=== PATIENT | male | born 1960 | race Caucasian/White ===

== ENCOUNTER 2019-10-29 15:28 | Inpatient (IN) | payer OTHER ==
[~2019-10-29] VITALS: Ht 188 cm; Wt 78.0 kg
[2019-10-29 16:54] LABS: BASOPHILS ABSOLUTE AUTO 0.09 K/mm3 (0.00-0.23); BASOPHILS PERCENT AUTO 0 % (0-2); EOSINOPHILS ABSOLUTE AUTO 0.04 K/mm3 (0.00-0.68); EOSINOPHILS PERCENT AUTO 0 % (0-6); Hematocrit 50.7 % (37.0-53.0); Hemoglobin 16.8 g/dL (13.5-17.5); IMMATURE GRAN ABSOLUTE AUTO 0.22 K/mm3 (0.00-0.10); IMMATURE GRAN PERCENT AUTO 1 % (0-1); LYMPHOCYTES ABSOLUTE AUTO 1.15 K/mm3 (0.84-5.20); LYMPHOCYTES PERCENT AUTO 4 % (21-46); MONOCYTES ABSOLUTE AUTO 2.73 K/mm3 (0.16-1.47); MONOCYTES PERCENT AUTO 10 % (4-13); Mean Corpuscular HGB 29.7 pg (26.0-34.0); Mean Corpuscular HGB Conc 33.1 g/dL (31.5-36.5); Mean Corpuscular Volume 90 fL (80-100); Mean Platelet Volume 10.3 fL (9.1-12.4); NEUTROPHILS ABSOLUTE AUTO 22.42 K/mm3 (1.96-9.15); NEUTROPHILS PERCENT AUTO 84 % (41-73); Platelet Count 439 K/mm3 (150-400); RDW Coefficient Variation 13.8 % (11.7-14.2); RDW Standard Deviation 45.5 fL (35.1-46.3); Red Blood Cell Count 5.66 M/mm3 (4.30-5.90); White Blood Cell Count 26.65 K/mm3 (4.00-11.30)
[2019-10-29 17:16] LABS: Ethanol (Alcohol), Blood, Med <3 mg/dL; Salicylate 3.5 mg/dL (2.8-20.0)
[2019-10-29 18:06] LABS: Alanine Aminotransfer (ALT/SGP 19 U/L (12-78); Albumin, Blood 2.8 g/dL (3.4-5.0); Albumin/Globulin Ratio 0.5 (0.8-1.8); Alk Phos 99 U/L (50-136); Anion Gap 8 mmol/L (6-16); Aspartate Aminotrans (AST/SGOT 12 U/L (12-37); Bilirubin, Total 1.1 mg/dL (0.1-1.0); Blood Urea Nitrogen 25 mg/dL (8-24); Bun/Creatinine Ratio 18.2 (12.0-20.0); CO2, Blood 22 mmol/L (21-32); Calcium, Blood 9.3 mg/dL (8.5-10.1); Chloride, Blood 107 mmol/L (98-108); Creatinine, Blood 1.37 mg/dL (0.60-1.20); Globulin, Blood 5.2 g/dL (2.2-4.0); Glomerular Filtration Rate 57 (60-); Glucose, Blood 139 mg/dL (70-99); Potassium, Blood 3.5 mmol/L (3.5-5.5); Sodium, Blood 137 mmol/L (136-145)
[2019-10-29 18:07] LABS: Acetaminophen, Random <2.0 ug/mL (10.0-30.0)
[2019-10-29 21:32] LABS: BASOPHILS ABSOLUTE AUTO 0.09 K/mm3 (0.00-0.23); BASOPHILS PERCENT AUTO 0 % (0-2); EOSINOPHILS ABSOLUTE AUTO 0.02 K/mm3 (0.00-0.68); EOSINOPHILS PERCENT AUTO 0 % (0-6); Hematocrit 48.5 % (37.0-53.0); IMMATURE GRAN ABSOLUTE AUTO 0.22 K/mm3 (0.00-0.10); IMMATURE GRAN PERCENT AUTO 1 % (0-1); LYMPHOCYTES ABSOLUTE AUTO 1.25 K/mm3 (0.84-5.20); LYMPHOCYTES PERCENT AUTO 5 % (21-46); MONOCYTES PERCENT AUTO 10 % (4-13); Mean Corpuscular HGB 29.6 pg (26.0-34.0); Mean Corpuscular Volume 90 fL (80-100); Mean Platelet Volume 10.3 fL (9.1-12.4); NEUTROPHILS ABSOLUTE AUTO 20.87 K/mm3 (1.96-9.15); NEUTROPHILS PERCENT AUTO 84 % (41-73); Platelet Count 418 K/mm3 (150-400); RDW Coefficient Variation 13.9 % (11.7-14.2); RDW Standard Deviation 45.8 fL (35.1-46.3); White Blood Cell Count 24.95 K/mm3 (4.00-11.30)
[2019-10-29 22:28] LABS: Magnesium, Blood 2.1 mg/dL (1.6-2.4); Salicylate 2.6 mg/dL (2.8-20.0)
[2019-10-30 00:04] LABS: Source, Urine Voided
[2019-10-30 00:12] LABS: Blood, Urine Neg (Neg); Glucose Qualitative, Urine Neg (Neg); Ketones, Urine 1+ (Neg); Leukocyte Esterase, Urine Neg (Neg); Nitrite, Urine Neg (Neg); Protein, Urine 2+ (Neg); Specific Gravity, Urine 1.015 (1.003-1.022); Urobilinogen, Urine 2+ (Normal)
[2019-10-30 00:17] LABS: Appearance, Urine Clear (Clear); Bilirubin, Urine 1+ (Neg); Color, Urine Amber (P-Yellow)
[2019-10-30 00:20] LABS: Amorphous Light (0-Heavy); Bacteria Not Seen /hpf; Mucus Light (0-Heavy); Red Blood Cells, Urine Not Seen /hpf (0-2); Squamous Epithelial Cells Not Seen /hpf (Few); White Blood Cells, Urine Rare /hpf (0-5)
[2019-10-30 00:21] LABS: U Amphetamine Screen Not Detected; U Barbituate Screen Not Detected; U Benzodiazapine Screen DETECTED; U Buprenorphine Screen Not Detected; U Cannabinoids Screen DETECTED; U Cocaine Screen Not Detected; U Methadone Screen Not Detected; U Methamphetamine Screen Not Detected; U Opiates Screen Not Detected; U Oxycodone Screen Not Detected; U Phencyclidine Screen Not Detected; U Propoxyphene Screen Not Detected
--- NOTE | 2019-10-30 06:54 | NUR ---
ADMIT/SHIFT SUMMERY PATIENT ALERT AND ORIENTED BUT HAS BEEN VERY FORGETFUL THROUGHOUT THE NIGHT. PATIENT ADMITED FROM THE ER AND TRANSFERED SELF FROM THE GURNEY TO THE BED BUT WAS VERY SHAKEY AND IMPULSIVE DOING SO. PATIENT HAS BEEN VERY FIDGTY AND IMPULSIVE LAST NIGHT. PATIENT SHAKEY ON AMBULATION. IV FLUIDS RUNNING PER ORDERS. BED ALARM ON FOR SAFETY, PATIENT HAS SET THE ALARM OFF SEVERAL TIMES TONIGHT. CENTRAL MONITORING CAMERA ON AND VERIFIED ABILITY FOR CAMER TO SEE HIM. PATIENT APPEARED TO SLEEP WELL FOR APPROX 2-3 HOURS LAST NIGHT. WILL CONTINUE TO MONITOR PATIENT AND REPORT TO ONCOMING RN.
[2019-10-30 08:25] LABS: BASOPHILS ABSOLUTE AUTO 0.11 K/mm3 (0.00-0.23); BASOPHILS PERCENT AUTO 0 % (0-2); EOSINOPHILS ABSOLUTE AUTO 0.05 K/mm3 (0.00-0.68); EOSINOPHILS PERCENT AUTO 0 % (0-6); Hematocrit 44.1 % (37.0-53.0); Hemoglobin 14.9 g/dL (13.5-17.5); IMMATURE GRAN PERCENT AUTO 2 % (0-1); LYMPHOCYTES ABSOLUTE AUTO 1.62 K/mm3 (0.84-5.20); LYMPHOCYTES PERCENT AUTO 6 % (21-46); MONOCYTES ABSOLUTE AUTO 3.13 K/mm3 (0.16-1.47); MONOCYTES PERCENT AUTO 12 % (4-13); Mean Corpuscular HGB 30.3 pg (26.0-34.0); Mean Corpuscular HGB Conc 33.8 g/dL (31.5-36.5); Mean Corpuscular Volume 90 fL (80-100); NEUTROPHILS ABSOLUTE AUTO 20.31 K/mm3 (1.96-9.15); NEUTROPHILS PERCENT AUTO 79 % (41-73); Platelet Count 346 K/mm3 (150-400); RDW Coefficient Variation 13.9 % (11.7-14.2); RDW Standard Deviation 45.7 fL (35.1-46.3); Red Blood Cell Count 4.91 M/mm3 (4.30-5.90); White Blood Cell Count 25.82 K/mm3 (4.00-11.30)
[2019-10-30 08:34] LABS: Anion Gap 11 mmol/L (6-16); Blood Urea Nitrogen 19 mg/dL (8-24); Bun/Creatinine Ratio 14.7 (12.0-20.0); CO2, Blood 19 mmol/L (21-32); Calcium, Blood 8.3 mg/dL (8.5-10.1); Chloride, Blood 110 mmol/L (98-108); Creatinine, Blood 1.29 mg/dL (0.60-1.20); Glomerular Filtration Rate >60 (60-); Glucose, Blood 83 mg/dL (70-99); Potassium, Blood 3.8 mmol/L (3.5-5.5); Sodium, Blood 140 mmol/L (136-145)
--- NOTE | 2019-10-30 18:23 | NUR ---
SHIFT SUMMARY NO ACUTE CHANGES NOTED THROUGH THE DAY. PT HAS BEEN RESTING IN BED WATCHING TV. HIS AFFECT REMAINS FLAT, FORGETFUL, ORIENTED X2. PT HAS BEEN COOPERATIVE WITH CARE & IS ABLE TO VOICE HIS NEEDS. VSS, RESP UNLABORED. IV ABX INFUSED PER EMAR. PT DENIES NAUSEA/ABD PAIN, NO STOOLS NOTED TODAY. HE HAS REFUSED CLEAR LIQUID OPTIONS FOR DINNER BUT HE IS TOLERATING SMALL SIPS OF WATER. PT'S SISTER HAS BEEN UPDATED ABOUT PT'S STATUS. BED ALARM IS ON FOR SAFETY, CALL LIGHT REMAINS IN REACH, WCTM
[2019-10-31 04:19] LABS: BASOPHILS ABSOLUTE AUTO 0.08 K/mm3 (0.00-0.23); BASOPHILS PERCENT AUTO 1 % (0-2); EOSINOPHILS ABSOLUTE AUTO 0.09 K/mm3 (0.00-0.68); EOSINOPHILS PERCENT AUTO 1 % (0-6); Hematocrit 43.1 % (37.0-53.0); Hemoglobin 14.1 g/dL (13.5-17.5); IMMATURE GRAN ABSOLUTE AUTO 0.23 K/mm3 (0.00-0.10); IMMATURE GRAN PERCENT AUTO 1 % (0-1); LYMPHOCYTES ABSOLUTE AUTO 2.27 K/mm3 (0.84-5.20); LYMPHOCYTES PERCENT AUTO 13 % (21-46); MONOCYTES PERCENT AUTO 11 % (4-13); Mean Corpuscular HGB 30.2 pg (26.0-34.0); Mean Corpuscular HGB Conc 32.7 g/dL (31.5-36.5); Mean Corpuscular Volume 92 fL (80-100); Mean Platelet Volume 10.2 fL (9.1-12.4); NEUTROPHILS PERCENT AUTO 73 % (41-73); Platelet Count 414 K/mm3 (150-400); RDW Coefficient Variation 14.1 % (11.7-14.2); RDW Standard Deviation 47.8 fL (35.1-46.3); Red Blood Cell Count 4.67 M/mm3 (4.30-5.90); White Blood Cell Count 17.17 K/mm3 (4.00-11.30)
[2019-10-31 04:42] LABS: Alanine Aminotransfer (ALT/SGP 13 U/L (12-78); Albumin, Blood 2.3 g/dL (3.4-5.0); Albumin/Globulin Ratio 0.5 (0.8-1.8); Alk Phos 81 U/L (50-136); Anion Gap 8 mmol/L (6-16); Aspartate Aminotrans (AST/SGOT 10 U/L (12-37); Bilirubin, Total 0.9 mg/dL (0.1-1.0); Blood Urea Nitrogen 16 mg/dL (8-24); Bun/Creatinine Ratio 12.4 (12.0-20.0); CO2, Blood 23 mmol/L (21-32); Calcium, Blood 8.2 mg/dL (8.5-10.1); Chloride, Blood 110 mmol/L (98-108); Creatinine, Blood 1.29 mg/dL (0.60-1.20); Globulin, Blood 4.2 g/dL (2.2-4.0); Glomerular Filtration Rate >60 (60-); Glucose, Blood 86 mg/dL (70-99); Potassium, Blood 3.6 mmol/L (3.5-5.5); Sodium, Blood 141 mmol/L (136-145); Total Protein, Blood 6.5 g/dL (6.4-8.2)
--- NOTE | 2019-10-31 05:30 | NUR ---
SHIFT SUMMARY PATIENT HAS HAD FLAT AFFECT AND HAS BEEN SLOW TO RESPOND WHEN TALKING WITH STAFF. IT IS DIFFICULT TO DETERMINE HOW MUCH PATIENT UNDERSTANDS WHEN EDUCATION BEING PROVIDED TO PATIENT DUE TO LACK OF RESPONSE AND INTERACTION FROM PATIENT. PATIENT APPEARED TO SLEEP WELL THROUGHOUT THE NIGHT. CAMERA ON IN ROOM AND BED ALARM ON FOR SAFETY. PATIENT MOVING SELF ABOUT IN BED. VITAL SIGNS CHARTED. WILL CONTINUE TO MONITOR PATIENT AND REPORT TO ONCOMING RN.
--- NOTE | 2019-10-31 17:54 | NUR ---
SHIFT SUMMARY NO ACUTE CHANGES NOTED THROUGH THE DAY. PT HAS BEEN RESTING QUIETLY IN BED. VSS, RESP UNLABORED, HE HAS BEEN TOLERATING CLEAR LIQUID DIET, DENIES PAIN/NAUSEA. DIET ADVANCED TO FULL LIQUID THIS EVENING. PT HAS REFUSED PERSONAL CARE TODAY AND WILL NOT WALK IN THE HALLS. EDUCATION PROVIDED, HE WAS NOT RECEPTIVE. BED ALRM REMAINS IN PLACE FOR SAFETY. IV FLUIDS & ABX INFUSED PER EMAR. CALL LIGHT IN REACH [facility]
--- NOTE | 2019-11-01 06:12 | NUR ---
SHIFT SUMMARY PATIENT VERY WITHDRAWN WITH A FLAT AFFECT LAST NIGHT. PATIENT DID NOT ENTERACT WITH STAFF VERY MUCH. PATIENT WOULD NOD/SHAKE HEAD OCCATIONALLY BUT PATIENT DID NOT VERBALLY COMMUNICATE WITH STAFF AT ALL LAST NIGHT. PATIENT HAS APPEARED TO SLEEP WELL THROUGHOUT THE NIGHT. BED ALARM ON FOR SAFETY. IV FLUIDS AND ABX GIVEN PER ORDERS. VITAL SIGNS CHARTED. PATIENT CURRENTLY APPEARS TO BE SLEEPING. WILL CONTINUE TO MONITOR PATIENT AND REPORT TO ONCOMING RN.
[2019-11-01 09:08] LABS: BASOPHILS ABSOLUTE AUTO 0.11 K/mm3 (0.00-0.23); BASOPHILS PERCENT AUTO 1 % (0-2); EOSINOPHILS ABSOLUTE AUTO 0.07 K/mm3 (0.00-0.68); EOSINOPHILS PERCENT AUTO 0 % (0-6); Hematocrit 44.6 % (37.0-53.0); Hemoglobin 14.5 g/dL (13.5-17.5); IMMATURE GRAN ABSOLUTE AUTO 0.15 K/mm3 (0.00-0.10); IMMATURE GRAN PERCENT AUTO 1 % (0-1); LYMPHOCYTES ABSOLUTE AUTO 1.43 K/mm3 (0.84-5.20); LYMPHOCYTES PERCENT AUTO 8 % (21-46); MONOCYTES ABSOLUTE AUTO 1.43 K/mm3 (0.16-1.47); MONOCYTES PERCENT AUTO 8 % (4-13); Mean Corpuscular HGB 29.9 pg (26.0-34.0); Mean Corpuscular HGB Conc 32.5 g/dL (31.5-36.5); Mean Corpuscular Volume 92 fL (80-100); Mean Platelet Volume 9.7 fL (9.1-12.4); NEUTROPHILS ABSOLUTE AUTO 13.88 K/mm3 (1.96-9.15); NEUTROPHILS PERCENT AUTO 81 % (41-73); Platelet Count 470 K/mm3 (150-400); RDW Coefficient Variation 13.9 % (11.7-14.2); RDW Standard Deviation 47.2 fL (35.1-46.3); Red Blood Cell Count 4.85 M/mm3 (4.30-5.90); White Blood Cell Count 17.07 K/mm3 (4.00-11.30)
[2019-11-01 09:30] LABS: Magnesium, Blood 1.9 mg/dL (1.6-2.4)
[2019-11-01 09:31] LABS: Alanine Aminotransfer (ALT/SGP 11 U/L (12-78); Albumin, Blood 2.2 g/dL (3.4-5.0); Albumin/Globulin Ratio 0.5 (0.8-1.8); Alk Phos 79 U/L (50-136); Anion Gap 9 mmol/L (6-16); Aspartate Aminotrans (AST/SGOT 8 U/L (12-37); Bilirubin, Total 0.8 mg/dL (0.1-1.0); Blood Urea Nitrogen 14 mg/dL (8-24); Bun/Creatinine Ratio 11.8 (12.0-20.0); CO2, Blood 21 mmol/L (21-32); Calcium, Blood 8.4 mg/dL (8.5-10.1); Chloride, Blood 110 mmol/L (98-108); Creatinine, Blood 1.19 mg/dL (0.60-1.20); Globulin, Blood 4.6 g/dL (2.2-4.0); Glomerular Filtration Rate >60 (60-); Glucose, Blood 71 mg/dL (70-99); Potassium, Blood 3.9 mmol/L (3.5-5.5); Sodium, Blood 140 mmol/L (136-145); Total Protein, Blood 6.8 g/dL (6.4-8.2)
--- NOTE | 2019-11-01 17:56 | NUR ---
SUMMARY NO ACUTE CHANGES NOTED THROUGH THE DAY. PT HAS BEEN VERY QUIET AND NOT WANTING TO RESPOND TO QUESTIONS. HE HAS STARTED TO COMMUNICATE WITH ME MORE THIS AFTERNOON WITH YES OR NO ANSWERS. PT AGREED THAT HE IS NOT TOLERATING HIS DIET WELL TODAY AND IS HAVING SOME INCREASED PAIN, HE DENIES THE NEED FOR PAIN MEDICATION AT THIS TIME, DENIES PASSING FLATUS AND REFUSES TO AMBULATE. UFF IN TO ASSESS PT TODAY, PT DID NOT ENGAGE. PT WAS EDUCATED ABOUT HIS CONDITION AND THE REASON WHY HE IS IN THE HOSPITAL. HE WAS STRONGLY ENC TO COMMUNICATE WITH DOCTORS & NURSES, HE HAS AGREED AT THIS TIME. PT'S SISTER HAS STATED OVER THE PHONE THAT THE PT "HAS BEEN IN DENIAL ABOUT HIS MENTAL HEALTH ISSUES IN THE PAST" THE PT WAS REMINDED THAT HE IS HERE FOR AN INFECTION, NOT JUST "MENTAL HEALTH" HE APPEARED TO BE MORE WILLING TO COMMUNICATE AFTERWARDS. PT REMAINS ON ROOM AIR, ABX INFUSING PER EMAR, REFUSING PERSONAL CARE, BED ALARM ON FOR SAFETY, CALL LIGHT IN REACH, WCTM & REPORT TO NOC RN
--- NOTE | 2019-11-01 22:52 | NUR ---
REPORT GIVEN TO MEDICAL FLOOR NURSE. PT TRANSFERRING TO ROOM 347.
--- NOTE | 2019-11-01 23:34 | NUR ---
Pt activity Pt is only responding to staff when asked yes or no questions. That is only with very slight nods or shakes of his head. He is not willing to help with repositioning or anything else. He just keeps his body very limp.
--- NOTE | 2019-11-02 04:58 | NUR ---
SHIFT SUMMARY PT XFER'D FROM PCU THIS SHIFT, REPORT REC FROM ANGEL RN, PT XFER'D VIA BED/SLIDE @ 2300, PT NOT RESPONDING TO STAFF, WILL OCCASIONALLY SHAKE HEAD TO YES/NO QUESTIONS BUT MOSTLY TURNS HEAD AWAY WHEN STAFF SPEAKS TO HIM. AWOKE PT @ 0405 TO BEGIN ADMIN OF ORAL CONTRAST, PT HAS TURNS HEAD AWAY WHEN STRAW PLACED TO MOUTH EVEN THOUGH PT HAS BEEN ADUCATED ON PURPOSE/IMPORTANCE OF CONTRAST. PT BEDRESTING AT THIS TIME, CALL LIGHT IN REACH, ALARM ACTIVE, WILL CONT TO MONITOR UNTIL REPORT GIVEN TO DAY RN.
[2019-11-02 05:37] LABS: BASOPHILS ABSOLUTE AUTO 0.07 K/mm3 (0.00-0.23); BASOPHILS PERCENT AUTO 0 % (0-2); EOSINOPHILS ABSOLUTE AUTO 0.07 K/mm3 (0.00-0.68); EOSINOPHILS PERCENT AUTO 0 % (0-6); Hematocrit 44.2 % (37.0-53.0); Hemoglobin 14.4 g/dL (13.5-17.5); IMMATURE GRAN ABSOLUTE AUTO 0.21 K/mm3 (0.00-0.10); IMMATURE GRAN PERCENT AUTO 1 % (0-1); LYMPHOCYTES ABSOLUTE AUTO 1.58 K/mm3 (0.84-5.20); LYMPHOCYTES PERCENT AUTO 8 % (21-46); MONOCYTES ABSOLUTE AUTO 1.65 K/mm3 (0.16-1.47); MONOCYTES PERCENT AUTO 9 % (4-13); Mean Corpuscular HGB 29.6 pg (26.0-34.0); Mean Corpuscular HGB Conc 32.6 g/dL (31.5-36.5); Mean Corpuscular Volume 91 fL (80-100); Mean Platelet Volume 9.9 fL (9.1-12.4); NEUTROPHILS ABSOLUTE AUTO 15.46 K/mm3 (1.96-9.15); NEUTROPHILS PERCENT AUTO 81 % (41-73); Platelet Count 525 K/mm3 (150-400); RDW Coefficient Variation 13.7 % (11.7-14.2); RDW Standard Deviation 46.2 fL (35.1-46.3); Red Blood Cell Count 4.86 M/mm3 (4.30-5.90); White Blood Cell Count 19.04 K/mm3 (4.00-11.30)
[2019-11-02 06:04] LABS: Alanine Aminotransfer (ALT/SGP 11 U/L (12-78); Albumin, Blood 2.1 g/dL (3.4-5.0); Albumin/Globulin Ratio 0.5 (0.8-1.8); Alk Phos 82 U/L (50-136); Anion Gap 9 mmol/L (6-16); Aspartate Aminotrans (AST/SGOT 9 U/L (12-37); Bilirubin, Total 0.8 mg/dL (0.1-1.0); Blood Urea Nitrogen 12 mg/dL (8-24); Bun/Creatinine Ratio 10.3 (12.0-20.0); CO2, Blood 22 mmol/L (21-32); Calcium, Blood 8.5 mg/dL (8.5-10.1); Chloride, Blood 106 mmol/L (98-108); Creatinine, Blood 1.17 mg/dL (0.60-1.20); Globulin, Blood 4.5 g/dL (2.2-4.0); Glomerular Filtration Rate >60 (60-); Glucose, Blood 92 mg/dL (70-99); Potassium, Blood 3.6 mmol/L (3.5-5.5); Sodium, Blood 137 mmol/L (136-145); Total Protein, Blood 6.6 g/dL (6.4-8.2)
[2019-11-02 13:44] LABS: International Normalized Ratio 1.13
--- NOTE | 2019-11-02 17:01 | NUR ---
SHIFT SUMMARY PATIENT DECLINES TO ANSWER MOST QUESTIONS FROM STAFF AND WILL TURN HIS HEAD AWAY WHEN HE DOES NOT WANT TO PARTICIPATE. PATIENT DECLINES TO ATTEMPT GETTING OUT OF BED. PATIENT HAD CT OF ABDOMEN THIS MORNING REVEALING A LARE FLUID COLLECTION/ABCESS. DR. MANCIA RECOMMENDS DRAIN PLACEMENT. PATIENT HAS REFUSED. PATIENT ON [address] COTE CONSULTING. POSSIBLE ETHICS CONSULT. PATIENT HAS POOR PO INTAKE. TPN STARTED. CALL LIGHT IN REACH.
--- NOTE | 2019-11-03 04:44 | NUR ---
SHIFT SUMMARY PT CONTINUES TO BE FLAT AND WITHDRAWN. VERY LITTLE CONVERSATION WITH STAFF, NODS HEAD "YES" OR "NO" WHEN ASKED A QUESTION, AND WILL OCCASIONALLY GIVE A ONE WORDED ANSWER WHEN HE NEEDS SOMETHING, AND DOES NOT MAKE EYE CONTACT. PT ASKED FOR ICE CHIPS, AND ANSWERED "NO" WHEN I ASKED IF HE WANTED TO TAKE HIS HS MEDICATIONS, THAT WAS THE EXTENT OF ANY VERBAL COMMUNICATION WITH ME THIS SHIFT. PT HAS HAD HIS EYES CLOSED MOST OF THE TIME AND APPEARS TO BE SLEEPING. IV ABX CONTINUED ORDERED. VITALS STABLE. PPN INFUSING PER ORDERS. NO ACUTE CHANGES OVERNIGHT. BED IN LOWEST POSITION, CALL LIGHT WITHIN REACH.
[2019-11-03 05:37] LABS: BASOPHILS ABSOLUTE AUTO 0.12 K/mm3 (0.00-0.23); BASOPHILS PERCENT AUTO 1 % (0-2); EOSINOPHILS PERCENT AUTO 0 % (0-6); Hematocrit 44.5 % (37.0-53.0); IMMATURE GRAN ABSOLUTE AUTO 0.33 K/mm3 (0.00-0.10); IMMATURE GRAN PERCENT AUTO 1 % (0-1); LYMPHOCYTES ABSOLUTE AUTO 1.45 K/mm3 (0.84-5.20); LYMPHOCYTES PERCENT AUTO 6 % (21-46); MONOCYTES ABSOLUTE AUTO 1.91 K/mm3 (0.16-1.47); MONOCYTES PERCENT AUTO 7 % (4-13); Mean Corpuscular HGB 30.4 pg (26.0-34.0); Mean Corpuscular HGB Conc 33.7 g/dL (31.5-36.5); Mean Corpuscular Volume 90 fL (80-100); Mean Platelet Volume 9.7 fL (9.1-12.4); NEUTROPHILS ABSOLUTE AUTO 22.04 K/mm3 (1.96-9.15); NEUTROPHILS PERCENT AUTO 85 % (41-73); Platelet Count 537 K/mm3 (150-400); RDW Coefficient Variation 13.6 % (11.7-14.2); RDW Standard Deviation 45.4 fL (35.1-46.3); Red Blood Cell Count 4.93 M/mm3 (4.30-5.90); White Blood Cell Count 25.95 K/mm3 (4.00-11.30)
--- NOTE | 2019-11-03 05:51 | NUR ---
SINCE WIRITING SHIFT SUMMARY PT IS AWAKE THIS AM AND MAKING GOOD EYE CONTACT WITH STAFF. GEM CUTTER HAD JUST FINISHED DRAWING BLOOD AND DATA ENTRY EMAIL PROCESSOR PERFORMED VITALS. HE OPENED HIS EYES. HE THEN ANSWERED MY QUESTIONS RELATED TO ORIENTATION. HE KNEW HE WAS AT [facility] AND KNEW WHAT CITY HE WAS IN. HE ALSO TALKED ABOUT A FRIEND OF HIS NAMED ROSA. I CONTINUED TO ENCOURAGE PT TO TALK. HE STATES THAT HE WILL TRY AND TALK WITH THE DOCTORS TODAY REGARDING HIS PLAN OF CARE. PT USES CONTROLS ON BED TO ELEVATE HOB. HE DENIES NEEDS THIS AM WHEN ASKED AND STATES THAT HE IS FEELING BETTER TODAY.
[2019-11-03 05:59] LABS: Magnesium, Blood 2.2 mg/dL (1.6-2.4)
[2019-11-03 06:00] LABS: Alanine Aminotransfer (ALT/SGP 14 U/L (12-78); Albumin, Blood 2.1 g/dL (3.4-5.0); Albumin/Globulin Ratio 0.4 (0.8-1.8); Alk Phos 78 U/L (50-136); Anion Gap 7 mmol/L (6-16); Aspartate Aminotrans (AST/SGOT 12 U/L (12-37); Bilirubin, Total 0.8 mg/dL (0.1-1.0); Blood Urea Nitrogen 14 mg/dL (8-24); Bun/Creatinine Ratio 13.5 (12.0-20.0); CO2, Blood 25 mmol/L (21-32); Calcium, Blood 8.8 mg/dL (8.5-10.1); Chloride, Blood 104 mmol/L (98-108); Creatinine, Blood 1.04 mg/dL (0.60-1.20); Globulin, Blood 4.7 g/dL (2.2-4.0); Glomerular Filtration Rate >60 (60-); Glucose, Blood 137 mg/dL (70-99); Phosphorus, Blood 3.7 mg/dL (2.5-4.9); Potassium, Blood 3.9 mmol/L (3.5-5.5); Sodium, Blood 136 mmol/L (136-145); Total Protein, Blood 6.8 g/dL (6.4-8.2); Triglycerides 135 mg/dL (30-160)
--- NOTE | 2019-11-03 17:43 | NUR ---
SHIFT SUMMARY PATIENT DECLINED TO PARTICIPATE IN CARE OR ASSESMENT TODAY. PATIENT DECLINED ORAL MEDS. PATIENT STATED "HE NEEDS MENTAL HELP" BUT COULD NOT ELABORATE FURTHER. NO PO INTAKE TODAY. TPN RUNNING AT 96. GUARDIANSHIP PROCESS INITIATED. CALL LIGHT IN REACH.
--- NOTE | 2019-11-04 05:00 | NUR ---
SHIFT SUMMARY ALERT AND INDIFFERENT WITH CARE. COOPERATIVE. NODS AND HEAD JESTURES GIVEN IN RESPONSE TO THIS RN's QUESTION. IT WAS RELAYED TO HIM THAT THIS RN DOES NOT UNDERSTAND THOSE JESTURES AND THAT HE NEEDS TO USE HIS WORDS. SINCE THAT TIME HE HAS BEEN RESPONDING WITH 1-3 WORD ANSWERS. REFUSED TO TAKE PO BEDTIME MEDICATIONS. TPN CONTINUED TO INFUSE OVERNIGHT. ABX INTERMITTENTLY. OFFERED URINAL INTERMITTENTLY T/O SHIFT; UTILIZED. VSS; HOWEVER, CONTINUES WITH LOW-GRADE TEMP. DENIES NEED TO HAVE A BM, WHEN TOLD THAT HE SHOULD CONSIDER TAKING PO STOOL SOFTENERS TO HELP, STATED "IM OK". ABDOMEN IS DISTENDED AND FIRM TO THE LLQ, DENIES PAIN WITH PALPATION, BT NOTED TO ALL 4 QUADS. APPEARED TO REST MUCH OF SHIFT. NO OTHER ACUTE CHANGES NOTED OVERNIGHT. BED IN LOWEST POSITION. CALL LIGHT AND BELONGINGS WITHIN REACH. WCTM. REPORT TO ONCOMING RN.
[2019-11-04 06:22] LABS: Anion Gap 9 mmol/L (6-16); Blood Urea Nitrogen 17 mg/dL (8-24); Bun/Creatinine Ratio 13.8 (12.0-20.0); CO2, Blood 24 mmol/L (21-32); Calcium, Blood 8.7 mg/dL (8.5-10.1); Chloride, Blood 102 mmol/L (98-108); Creatinine, Blood 1.23 mg/dL (0.60-1.20); Glomerular Filtration Rate >60 (60-); Glucose, Blood 118 mg/dL (70-99); Magnesium, Blood 2.2 mg/dL (1.6-2.4); Phosphorus, Blood 3.7 mg/dL (2.5-4.9); Potassium, Blood 3.9 mmol/L (3.5-5.5); Sodium, Blood 135 mmol/L (136-145)
[2019-11-04 10:14] LABS: BASOPHILS ABSOLUTE AUTO 0.12 K/mm3 (0.00-0.23); BASOPHILS PERCENT AUTO 0 % (0-2); EOSINOPHILS ABSOLUTE AUTO 0.09 K/mm3 (0.00-0.68); EOSINOPHILS PERCENT AUTO 0 % (0-6); Hematocrit 43.6 % (37.0-53.0); Hemoglobin 14.7 g/dL (13.5-17.5); IMMATURE GRAN ABSOLUTE AUTO 0.42 K/mm3 (0.00-0.10); IMMATURE GRAN PERCENT AUTO 2 % (0-1); LYMPHOCYTES ABSOLUTE AUTO 1.39 K/mm3 (0.84-5.20); LYMPHOCYTES PERCENT AUTO 5 % (21-46); MONOCYTES ABSOLUTE AUTO 2.01 K/mm3 (0.16-1.47); MONOCYTES PERCENT AUTO 7 % (4-13); Mean Corpuscular HGB 30.3 pg (26.0-34.0); Mean Corpuscular HGB Conc 33.7 g/dL (31.5-36.5); Mean Corpuscular Volume 90 fL (80-100); Mean Platelet Volume 9.8 fL (9.1-12.4); NEUTROPHILS ABSOLUTE AUTO 23.07 K/mm3 (1.96-9.15); NEUTROPHILS PERCENT AUTO 85 % (41-73); Platelet Count 545 K/mm3 (150-400); RDW Coefficient Variation 13.9 % (11.7-14.2); RDW Standard Deviation 45.1 fL (35.1-46.3); Red Blood Cell Count 4.85 M/mm3 (4.30-5.90)
--- NOTE | 2019-11-04 13:12 | NUR ---
PATIENT HAS BEEN AGREEABLE TO TAKE ALL PO MEDICATIONS TODAY. PATIENT ATE 10% OF HIS LUNCH. HE HAS BEEN UP IN THE CHAIR FOR AN HOUR. HE APPEARS TO BE IN PAIN, TREATED PER EMAR. PATIENT UP TO BSC TO ATTEMPT HAVING A BM 3 TIMES TODAY. HE IS ON THE BSC RIGHT NOW, PRODUCING GAS, UNSURE IF BM. WILL MONITOR.
--- NOTE | 2019-11-04 17:48 | NUR ---
DR. MANZANO NOTIFIED OF PATIENT'S 100.6 DEGREES FAHRENHEIT ORAL TEMPERATURE. NEW TYLENOL ORDERS GIVEN
--- NOTE | 2019-11-04 18:02 | NUR ---
TYLENOL HI ADMINISTERED, ICE PACK PLACED ON PT. COVERS REMOVED FROM PATIENT. PATIENT ENCOURAGED TO DRINK FLUIDS
--- NOTE | 2019-11-04 18:22 | NUR ---
PATIENT IS SLEEPY/AROUSABLE AT THIS TIME. HE WAS MORE AWAKE EARLIER AND WAS ABLE TO EAT SOME LUNCH, GET OUT OF BED TO THE RECLINER AND HAVE A BM ON THE BSC. PATIENT WAS AGREEABLE TO TAKE MORNING MEDICATIONS PO. THIS AFTERNOON, HE HAS A FEVER OF 100.6, TREATED WITH TYLENOL DC, ICE PACK AND REMOVING OF COVERS. PPN IS RUNNING. HIS EVENING DOSE OF ANTIBIOTICS HAVE BEEN GIVEN. PATIENT WAS NOT AGREEABLE TO DR. YOO PLAN OF CARE TODAY. WILL CONTINUE TO MONITOR. WILL CHECK HIS TEMPERAURE AGAIN
--- NOTE | 2019-11-05 04:35 | NUR ---
SHIFT SUMMARY ALERT, ABLE TO MAKE NEEDS KNOWN. COOPERATIVE WITH CARE. AT EDGE OF BED AT BEGINNING OF SHIFT; APPEARED VERY ANXIOUS, MEDICATED PER EMAR. ASKED IF PATIENT LIKED WATCHING TV, STATED "I WATCH ALL KINDS OF TV". TURNED ON TV. NOT TOO MUCH LONGER AFTER; IV INFLITRATION. NEW IV ESTABLISHED. MENTATION HAD SIGNIFICANTLY IMPROVED WAS HOLDING A CONVERSATION WITH THIS RN. REMINDED TO USE URINAL; AFTER INCONT EPISODE. VSS. APPEARED TO REST FOR SEVERAL HOURS. NO OTHER ACUTE CHANGES NOTED. BED REAMINED IN LOWEST POSITION; ALARM ON. CALL LIGHT AND BELONGINGS WITHIN REACH. WCTM. REPORT TO ONCOMING RN.
[2019-11-05 05:23] LABS: BASOPHILS ABSOLUTE AUTO 0.16 K/mm3 (0.00-0.23); BASOPHILS PERCENT AUTO 1 % (0-2); EOSINOPHILS ABSOLUTE AUTO 0.15 K/mm3 (0.00-0.68); EOSINOPHILS PERCENT AUTO 1 % (0-6); Hematocrit 42.7 % (37.0-53.0); Hemoglobin 14.4 g/dL (13.5-17.5); IMMATURE GRAN ABSOLUTE AUTO 0.46 K/mm3 (0.00-0.10); IMMATURE GRAN PERCENT AUTO 2 % (0-1); LYMPHOCYTES ABSOLUTE AUTO 1.94 K/mm3 (0.84-5.20); LYMPHOCYTES PERCENT AUTO 8 % (21-46); MONOCYTES ABSOLUTE AUTO 2.58 K/mm3 (0.16-1.47); MONOCYTES PERCENT AUTO 10 % (4-13); Mean Corpuscular HGB 30.4 pg (26.0-34.0); Mean Corpuscular HGB Conc 33.7 g/dL (31.5-36.5); Mean Corpuscular Volume 90 fL (80-100); Mean Platelet Volume 9.8 fL (9.1-12.4); NEUTROPHILS ABSOLUTE AUTO 20.23 K/mm3 (1.96-9.15); NEUTROPHILS PERCENT AUTO 79 % (41-73); Platelet Count 555 K/mm3 (150-400); RDW Coefficient Variation 13.9 % (11.7-14.2); RDW Standard Deviation 45.8 fL (35.1-46.3); Red Blood Cell Count 4.74 M/mm3 (4.30-5.90); White Blood Cell Count 25.52 K/mm3 (4.00-11.30)
[2019-11-05 05:53] LABS: Bun/Creatinine Ratio 13.7 (12.0-20.0); Calcium, Blood 8.6 mg/dL (8.5-10.1); Creatinine, Blood 1.31 mg/dL (0.60-1.20); Magnesium, Blood 2.3 mg/dL (1.6-2.4); Phosphorus, Blood 4.1 mg/dL (2.5-4.9); Potassium, Blood 4.2 mmol/L (3.5-5.5)
--- NOTE | 2019-11-05 12:25 | NUR ---
PATIENT IS AWAKE, ALERT AND OUT OF BED. RN SPOKE WITH THE PATIENT ABOUT WHY HE IS HERE AND HIS CONDITION. THE PATIENT IS MUCH MORE ORIENTED THAN HE WAS THIS MORNING. HE STATED HE IS WILL TO TALK TO HIS DRThai ABOUT HAVING THE SURGERY PERFORMED. DR. MANZANO NOTIFIED OF THIS, SHE ASKED THAT I CONTACT DR. MANCIA
--- NOTE | 2019-11-05 13:05 | NUR ---
DR. MANCIA CAME TO PATIENT'S ROOM TO TALK. PATIENT DECLINED THE PROCEDURE AGAIN.
--- NOTE | 2019-11-05 18:24 | NUR ---
PATIENT IS ALERT AND ORIENTED AT THIS TIME. HE WAS ABLE TO TELL ME HE IS AT THE HOSPITAL IN [place], HIS FULL NAME AND DATE OF AND THAT THE REASON HE IS IN THE HOSPITAL IS FOR AN "OPERATION". HE IS UP IN THE CHAIR FOR DINNER. HE WALKED TO THE BATHROOM TO VOID. THE PATIENT'S SISTER, DIANE, TALKED WITH HIM ON THE PHONE. DIANE EXPLAINED TO THE PATIENT THAT SHE FEELS HE SHOULD HAVE THE DRAIN TUBE PLACED AND HE TOLD THE RN THAT HE WOULD LIKE TO HAVE THE OPERATION. DR. MANZANO NOTIFIED OF THIS, SHE STATED THAT SHE WOULD PLACE THE ORDER FOR THE DRAIN TUBE PLACEMENT TOMORROW. WILL CONTINUE TO MONITOR
--- NOTE | 2019-11-05 23:19 | NUR ---
CALL PLACED TO HOSPITALIST AT 2029: PT PULLED OUT SECOND IV IN 2 HOURS. UNABLE TO COMPLETE IV ABT ADMINISTRATION AND UNABLE TO START IV LIPIDS/CLINIMIX. A/O TO SELF. KNOWS HE IS IN THE HOSPITAL BUT UNABLE TO STATE WHY. SPOKE W/CHERIE VELEZ NP. RECEIVED ORDER FOR BILATERAL WRIST RESTRAINTS. RESTRAINTS APPLIED AFTER IV RESTARTED AT 2129.
--- NOTE | 2019-11-06 00:02 | NUR ---
CALL PLACED TO HOSPITALIST TO REPORT THAT 1/2 A TURKEY SANDWICH WAS GIVEN TO PT IN ERROR. PT IS ORDERED A FULL LIQUID DIET. CHERIE VELEZ NP STATED, MONITOR PT FOR NAUSEA. MONITOR FOR ANY OTHER CHANGES.
[2019-11-06 05:28] LABS: BASOPHILS ABSOLUTE AUTO 0.14 K/mm3 (0.00-0.23); BASOPHILS PERCENT AUTO 1 % (0-2); EOSINOPHILS ABSOLUTE AUTO 0.23 K/mm3 (0.00-0.68); EOSINOPHILS PERCENT AUTO 1 % (0-6); Hematocrit 41.6 % (37.0-53.0); Hemoglobin 13.7 g/dL (13.5-17.5); IMMATURE GRAN ABSOLUTE AUTO 0.32 K/mm3 (0.00-0.10); IMMATURE GRAN PERCENT AUTO 2 % (0-1); LYMPHOCYTES PERCENT AUTO 11 % (21-46); MONOCYTES ABSOLUTE AUTO 2.44 K/mm3 (0.16-1.47); MONOCYTES PERCENT AUTO 12 % (4-13); Mean Corpuscular HGB 29.9 pg (26.0-34.0); Mean Corpuscular HGB Conc 32.9 g/dL (31.5-36.5); Mean Corpuscular Volume 91 fL (80-100); NEUTROPHILS ABSOLUTE AUTO 15.88 K/mm3 (1.96-9.15); NEUTROPHILS PERCENT AUTO 74 % (41-73); Platelet Count 615 K/mm3 (150-400); RDW Coefficient Variation 13.8 % (11.7-14.2); RDW Standard Deviation 46.1 fL (35.1-46.3); Red Blood Cell Count 4.58 M/mm3 (4.30-5.90); White Blood Cell Count 21.31 K/mm3 (4.00-11.30)
[2019-11-06 05:48] LABS: Bun/Creatinine Ratio 16.8 (12.0-20.0); Calcium, Blood 8.7 mg/dL (8.5-10.1); Creatinine, Blood 1.43 mg/dL (0.60-1.20); Magnesium, Blood 2.4 mg/dL (1.6-2.4); Potassium, Blood 4.2 mmol/L (3.5-5.5)
--- NOTE | 2019-11-06 06:08 | NUR ---
SHIFT SUMMARY: VSS. AFEB. AAO TO SELF AND LOCATION. CONVERSATIONAL TONIGHT. DISAGREES W/DX. SUSPICIOUS OF BEING NPO AND STATES THAT HE WILL NOT BE HAVING SURGERY. ENCOURAGED HIM TO DISCUSS THIS WITH HIS DOCTOR AND SISTER TODAY. WRIST RESTRAINTS IN PLACE ALL NIGHT. PT TOLERATING THEM WELL LONG TIE POINTS WERE READJUSTED SEVERAL TIMES TO HIS COMFORT. NO FURTHER ATTEMPTS TO REMOVE IV. IV ABT, CLINIMIX AND LIPIDS INFUSED PER ORDERED. ABD SOFT, DISTENDED, L SIDE APPEARS MORE DISTENDED THAN R. DENIES PAIN W/PALPATION. REPORTS THAT HE ONLY EXPERIENCES ABD PAIN WHEN HAVING A BM. NO N/V. IS SLEEPING AT THIS TIME. NO ACUTE CHANGES.
--- NOTE | 2019-11-06 17:48 | NUR ---
SHIFT SUMMARY- PT IS A/O PLESATN AND COOPERATIVE. PT WAS GOING TO HAVE A PROCEDURE TODAY BUT IT WAS RESHCEDULED FOR FRIDAY. HE IS EATING AND DRINKING WELL. HE SLEPT FOR MOST OF THIS SHIFT. HE IS RECIEVING IV ANTIBIOTICS.
--- NOTE | 2019-11-07 06:14 | NUR ---
SHIFT SUMMARY: VSS. AFEB. AAO TO SELF. WILL NOT ANSWER ORIENTATION QUESTIONS. OCC. WILL ANSWER SELECT QUESTIONS W/ ONE WORD. SLEPT MOST OF THE NIGHT. ABD DISTENDED, SOFT, TENDER THROUGHOUT W/PALPATION. REFUSES PRN PAIN MEDS. CONT FULL LIQUID DIET. NO N/V. NO BM TONIGHT. PT IS MORE WITHDRAWN AND TOTALLY INCONTINENT TONIGHT. SIGHS WHEN ASKED TO ASSIST W/TURNS DURING BED CHANGES. LEAVING IV ALONE, NO ATTEMPTS TO PULL IT OUT. ABT, CLINIMIX, AND LIPIDS INFUSED PER ORDERS.
--- NOTE | 2019-11-07 10:58 | NUR ---
ASKED PT IF HE WANTED A DRINK, OR TO GO TO BATHROOM. HE SAID NO BUT ASKED ME TO HELP HIM BECAUSE HE FELT SICK. ASKED HIM IF HE COULD TELL ME WHAT WAS WRONG AND PT JUST SAID SORRY.
--- NOTE | 2019-11-07 17:39 | NUR ---
SHIFT SUMMARY- PT IS ALERT. HE WAS VERY WITHDRAWN THIS MORNING AND REFUSED TO TAKE HIS MEICATION. HE IS MORE TALKATIVE THIS AFTERNOON. HE IS EATING AND DRINKING WELL. HE IS GOING TO BE NPO AFTER MIDNIGHT FOR PROCEDURE.
[2019-11-08 05:08] LABS: BASOPHILS ABSOLUTE AUTO 0.17 K/mm3 (0.00-0.23); BASOPHILS PERCENT AUTO 1 % (0-2); EOSINOPHILS ABSOLUTE AUTO 0.16 K/mm3 (0.00-0.68); EOSINOPHILS PERCENT AUTO 1 % (0-6); Hematocrit 43.6 % (37.0-53.0); Hemoglobin 14.3 g/dL (13.5-17.5); IMMATURE GRAN ABSOLUTE AUTO 0.32 K/mm3 (0.00-0.10); IMMATURE GRAN PERCENT AUTO 2 % (0-1); LYMPHOCYTES ABSOLUTE AUTO 2.07 K/mm3 (0.84-5.20); LYMPHOCYTES PERCENT AUTO 10 % (21-46); MONOCYTES ABSOLUTE AUTO 2.07 K/mm3 (0.16-1.47); MONOCYTES PERCENT AUTO 10 % (4-13); Mean Corpuscular HGB Conc 32.8 g/dL (31.5-36.5); Mean Corpuscular Volume 92 fL (80-100); Mean Platelet Volume 9.9 fL (9.1-12.4); NEUTROPHILS ABSOLUTE AUTO 16.89 K/mm3 (1.96-9.15); NEUTROPHILS PERCENT AUTO 78 % (41-73); Platelet Count 742 K/mm3 (150-400); RDW Coefficient Variation 13.7 % (11.7-14.2); RDW Standard Deviation 46.4 fL (35.1-46.3); Red Blood Cell Count 4.76 M/mm3 (4.30-5.90); White Blood Cell Count 21.68 K/mm3 (4.00-11.30)
[2019-11-08 05:23] LABS: International Normalized Ratio 1.09; Prothrombin Time Results 11.6 Sec (9.7-11.5)
[2019-11-08 05:33] LABS: Anion Gap 8 mmol/L (6-16); Blood Urea Nitrogen 23 mg/dL (8-24); CO2, Blood 22 mmol/L (21-32); Chloride, Blood 105 mmol/L (98-108); Creatinine, Blood 1.21 mg/dL (0.60-1.20); Glomerular Filtration Rate >60 (60-); Glucose, Blood 113 mg/dL (70-99); Potassium, Blood 4.2 mmol/L (3.5-5.5); Sodium, Blood 135 mmol/L (136-145)
--- NOTE | 2019-11-08 06:20 | NUR ---
SHIFT SUMMARY: VSS. TEMP 100.1, RECHECKED ORAL TEMP WNL. PT REPORTING FEELING BLOATED IN HIS ABD, DENIES PAIN W/PALPATION. NO N/V. MORE COHERENT TONIGHT. DISCUSSING NPO STATUS AND UPCOMING PROCEDURE. PT STATES HE IS IN AGREEMENT W/DRAIN PLACEMENT AND WANTS TO DO WHAT'S BEST FOR HIS OVERALL HEALTH. VERY COOPERATVE TONIGHT, REQUESTED A SHOWER AND TOOK ONE, CONTINENT OF URINE, CALLING FOR ASSISTANCE NEEDED. SLEPT THROUGH MUCH OF THE NIGHT. HAS REMAINED NPO SINCE MIDNIGHT IN PREPARATION FOR DRAIN PLACEMENT TODAY. PT IS REQUESTING TO TALK TO DR. COTE REGARDING HIS "FUZZY MIND". WILL PASS THIS ON TO DAY SHIFT TODAY.
--- NOTE | 2019-11-08 12:32 | NUR ---
1120 PT PULLED OUT BOTH IV'S, CAME OUT IN [place] SAYING HE IS IN THE WRONG HOSPITAL AND NEEDED TO LEAVE. PT KNEW THAT HE WAS IN A HOSPITAL IN [place] THIS AM DURING ASSESSMENT. PT REFUSING TO HAVE NEW IV PLACED. GAS LOAD DISPATCHER, DR. MANCIA, AND DR. REIS NOTIFIED. DR. REIS ORDERED ZYPREXA 5MG IM ONCE. SPOKE WITH PT'S SISTER THIS AM, SHE REPORTS THAT HER BUSINESS RELATIONSHIP MANAGER IS FILING PETITION FOR TEMPORY GUARDIANSHIP TODAY.
--- NOTE | 2019-11-08 16:09 | NUR ---
DR. REIS CAME UP TO VISIT PT THIS AFTERNOON FOR A SECOND TIME AND EDUCATED THE PT ON THE IMPORTANCE OF ANTIBIOTIC THERAPY AND DRAIN PLACEMENT. PT AGREEABLE TO IV START AND PROCEDURE AFTERWARDS. IV STARTED. PT TO PROCEDURE VIA JULIA AT THIS TIME.
--- NOTE | 2019-11-08 17:08 | NUR ---
TEMPORARY ORDER FOR GUARDIANSHIP RECIEVED VIA FAX FROM SISTER, ON FRONT OF CHART.
--- NOTE | 2019-11-08 18:50 | NUR ---
SHIFT SUMMARY. A&OX4, INTERMITTENT CONFUSION, EASILY REORIENTS. PT RETURNED FROM PACU AT APPROXIMATELY 1730. DRAIN TO LLQ ABD DRAINING DARK PINK PURELENT FLUID. NO SOB, N/V. PT RESTING AT THIS TIME.
--- NOTE | 2019-11-09 01:23 | NUR ---
PT ATTEMPTING TO REMOVE ABD DRAIN *LATE ENTRY* PATIENT CASE COORDINATOR FOUND PT PULLING ON LLQ PIGTAIL DRAIN, HE HAD BANDAGE REMOVED. I REAPPLIED A LARGE TRANSPERENT DRESSING OVER DRAIN & NOTIFIED DR LIVE. SHE ORDERED PT TO BE PLACED IN WRIST RESTRAINTS TO PREVENT DRAIN FROM GETTING REMOVED. NOTIFIED SISTER DIANE OF RESTRAINTS. WCTM PT.
--- NOTE | 2019-11-09 05:58 | NUR ---
SHIFT SUMMARY AOX3-CONFUSED @TIMES, ATTEMPTED TO REMOVE PIGTAIL DRAIN EARLIER IN SHIFT, READ PREVIOUS NOTE. DRAIN LOCATED IN LLQ ABD, TENDER TO PALPATION, HYPERACTIVE BT. DENIES PAIN, NAUSEA OR DYSPNEA. VSS. WRIST RESTRAINTS IN PLACE FOR SAFETY OF DRAIN. CALL LIGHT IN REACH, BED ALARM IN PLACE. WCTM.
--- NOTE | 2019-11-09 18:11 | NUR ---
1800 FOUND PT IN ROOM SITTING ON EDGE OF BED NAKED WITH IV AND ABD DRAIN REMOVED. PT ASKED WHY HE HAD REMOVED THESE, HE REPLIED THAT HE WANTED TO GO HOME. PT REMINDED THAT WE HAD A DISCUSSION THAT HE COULD REMAIN OUT OF RESTRAINTS IF HE DID NOT ATTEMPT TO REMOVE LINES. PT'S SISTER, DIANE, NOTIFIED OF THE ABOVE, SHE SAID THAT IF HE NEEDED TO BE IN RESTRAINTS FOR TREATMENT SHE AGREED. GUARDIANSHIP PAPERS SERVED THIS AFTERNOON. DR. REIS NOTIFIED OF THE ABOVE, HE REQUESTED THE IV BE REPLACED FOR IV ABX AND TO NOTIFY DR. MANCIA. DR. MANCIA ANSWERING SERVICE CALLED, AWAITING RETURN CALL. PT HAD 50ML RED, THIN LIQUID IN DRAINAGE BAG FROM ABD PRIOR TO BEING REMOVED.
--- NOTE | 2019-11-09 18:43 | NUR ---
SPOKE WITH DR. MANCIA, REPORTED THAT HE BELEIVES THE CAVITY IS DRAINED HE ATTEMPTED TO ASPIRATE DRAIN AND THERE WAS NO OUTPUT. HE REPORTED THAT HE MAY ORDER IMAGING FOR TOMORROW AND THAT THE PT MAY BE TRANSITIONED TO PO ANTIBIOTICS. REICEVED ORDER FROM DR. MANCIA TO D/C ASHLEY AND START THE PT ON AUGMENTIN. DR. REIS NOTIFIED OF THE ABOVE, RECIEVED ORDER FOR NO IV ACCESS NEEDED. NOTIFIED PT'S SISTER, DIANE, OF THE ABOVE WELL.
--- NOTE | 2019-11-10 05:28 | NUR ---
SHIFT SUMMARY NO ACUTE CHANGES THIS SHIFT. AOX3-SELF, PLACE, YR. CONFUSED @TIMES. FLAT & WITHDRAWN AFFECT. DENIES DYSPNEA, PAIN OR NAUSEA. PT REMOVED PIGTAIL DRAIN ON DAY SHIFT YESTERDAY 11/09/19, DENIES ABD TENDERNESS. ACTIVE BT. VSS. IND IN ROOM. CALL LIGHT IN REACH. WCTM.
--- NOTE | 2019-11-10 16:51 | NUR ---
SHIFT SUMMARY PT HAS BEEN AWAKE ALL OF SHIFT. NO SIGNS OF PAIN OR DISCOMFORT THIS SHIFT. PT DOESN'T TALK BUT WILL SHAKE HEAD YES/NO AT TIMES WHEN QUESTIONS ARE ASKED. PT ROLLS EYES WHEN STAFF ASKING QUESTIONS AND APPEARS IRRITATED. TOOK MORNING MEDICATIONS EXCEPT MIRALAX AND ENOXEPARIN. NO ACUTE CHANGES AT THIS TIME. CALL LIGHT IN REACH. WILL CONTINUE TO MONITOR AND REPORT TO ONCOMING RN.
--- NOTE | 2019-11-10 19:58 | NUR ---
ASSUMED CARE. WENDIE GUERRIER, ABLE TO ANSWER ALL ORIENTATION QUESITONS. FOLLOWS DIRECTION, INTERACTS SOME WITH STAFF. HE COOPERATIVE WITH SLIGHT WITHDRAWN WITH STAFF. DENIES ANY PAIN OR DISCOMFORT. ABDOMEN SOFT SLIGHTLY DISTENDED AND TENDER WHEN PALPITATED. DENIES ANY NAUSEA OR DISCOMFORT. REPORTS BM JUST A FEW MINUTES AGO. DID NOT EAT MUCH OF DINNER. HE DENIED WANTING ANY OF IT. ENCOURAGED HIM TO CALL IF HE GETS HUNGRY. CALL LIGHT IN REACH. WILL CONTINUE TO MONITOR.
--- NOTE | 2019-11-11 05:25 | NUR ---
SHIFT SUMMARY; WENDIE HAD A UNEVENTFUL NIGHT. WAS INTERACTIVE AND ORIENTED AT START OF SHIFT. WENT TO BED EARLY AND SLEPT THROUGHOUT THE NIGHT. DID WAKE UP SEVERAL TIMES TO USE THE RESTROOM ON HIS OWN. VS HAVE REMAINED STABLE, AFEBRILE. DOES GET IRRITABLE WHEN HE IS SLEEPING AND SOMEONE TALKS TO HIM. NO CHANGES THIS SHIFT.
[2019-11-11 05:41] LABS: Anion Gap 8 mmol/L (6-16); Blood Urea Nitrogen 17 mg/dL (8-24); CO2, Blood 22 mmol/L (21-32); Chloride, Blood 107 mmol/L (98-108); Creatinine, Blood 1.13 mg/dL (0.60-1.20); Glomerular Filtration Rate >60 (60-); Glucose, Blood 92 mg/dL (70-99); Sodium, Blood 137 mmol/L (136-145)
--- NOTE | 2019-11-11 17:52 | NUR ---
SHIFT SUMMARY PT HAS BEEN UP AND DOWN IN ROOM. PT STATES "NO" WHEN ASKED IF HAS ANY PAIN. PT DOESN'T TALK MUCH THIS SHIFT. ONLY ANSWERS A FEW SIMPLE QUESTIONS. NO ACUTE CHANGES THIS SHIFT. PLANS FOR PT TO DISCHARGE HOME WITH SISTER ONCE SHE IS IN TOWN SOMETIME BEGINNING OF NOVEMBER. CALL LIGHT IN REACH. WILL CONTINUE TO MONITOR AND REPORT TO ONCOMING RN.
--- NOTE | 2019-11-11 19:30 | NUR ---
ASSUMED CARE. WENDIE WAS SITTING ON SIDE OF BED, JUST STARTING AT THINGS IN THE ROOM. ASKED WHEN HE CAN GO HOME. REFUSED TO EAT DINNER, WITHDRAWN FROM ANY CARE. DOES NOT UNDERSTAND WHY HE IS HERE OR WHY HE HAS TO WAIT FOR HIS SISTER TO COME DOWN. TRIED TO EXPLAIN TO HIM THAT HE NEEDS HELP ONCE HE GOES HOME, AND WE ARE LOOKING OUT FOR HIS SAFETY. HE JUST GOES QUIET AND LOOKS OFF AT THE WALL. STATES HE DOES HAVE TENDERNESS IN THE ABDOMEN, BUT IS HAVING REGULAR BM, NO NAUSEA, PASSING GAS. INDEPENDENT IN THE ROOM, CALL LIGHT IN REACH.
--- NOTE | 2019-11-11 22:29 | NUR ---
WENDIE IS SLEEPING COMFORTABLY IN BED, CALL LIGHT IS IN REACH. WILL CONTINUE TO MONITOR.
--- NOTE | 2019-11-11 23:19 | NUR ---
WENDIE SISTER CALLED SYDNEE. JUST WANTING TO GET AN UPDATE. SHE HAD ALOT OF QUESTIONS ABOUT HIS INTERACTIONS, HOW HIS BEHAVIOR HAS BEEN. ABOUT HIS INFECTION, AND HOW TO EVEN MANAGE HIS MENTAL CONDITION WHEN SHE GETS OUT HERE. WE TALKED ABOUT THE COMMUNITY RESOURCES, HOW TO INTERACT WITH HIM, WAYS TO TALK TO HIM OR HOW TO START CONVERSATIONS. SHE TALKED ALOT ABOUT [facility] AND GETTING HIM HELP THROUGHOUT THEM. RECOMMENDED HE SEE A THERAPIST ALONG WITH PHYSCOLOGIST. SHE DID STATES SEVERAL TIMES THAT WENDIE HAS TOLD HER OVER THE PHONE THAT HE WANTS TO TALK TO THE PHYSCOLOGIST CAUSE HE FEELS THERE IS SOMETHING WRONG WITH HIS BRAIN. INFORMED HER THAT WENDIE HAS BEEN INTERACTIVE WITH ME, ASKING QUESTIONS AND TRYING TO UNDERSTAND WHY HE IS HERE STILL. FOUND THAT WHEN YOU TALK ABOUT HIM STAYING HERE, HE TENDS TO GET IRRITATED HE FEELS HE DOES NOT NEED TO BE HERE. HE HAS BEEN COOPERATIVE AND PLEASANT SO FAR. HE DID NOT WANT TO TALK TO HIS SISTER SYDNEE. INFORMED HIM SHE WAS ON THE PHONE AND WILL TALK TO HIM LATER. CALL LIGHT IN REACH.
--- NOTE | 2019-11-12 05:48 | NUR ---
SHIFT SUMMARY: WENDIE HAD ANOTHER UNEVENTFUL NIGHT. HE WAS COOPERATIVE AND INTERACTED SOME WITH ME. ASKING FULL QUESTIONS ABOUT WHY HE STILL NEEDS TO BE HERE. WHY HIS SISTER IS MOVING OVER HERE AND WHAT SHE IS GOING TO BE DOING FOR HIM. FRUSTRATED ABOUT BEING IN THE HOSPITAL AND NOT UNDERSTANDING WHY HE CAN NOT GO HOME SINCE HE IS FEELING OK. DID NOT WANT TO EAT DINNER, FEEL HE DOES IT ON PURPOSE CAUSE HE DOES NOT WANT TO BE HERE. SISTER CALLED, SPOKE WITH HER FOR SOME TIME, PLEASE SEE PREVIOUS NOTES. SLEPT REST OF SHIFT. VS WNL AFEBRILE. WILL REPORT TO DAY SHIFT WHEN THEY ARRIVE.
--- NOTE | 2019-11-12 07:21 | NUR ---
ASSUMED CARE OF PT- MAYANKE REPORT COMPLETED WITH NIGHT RN MARAH. PER REPORT PT HAS SEVERE ANXIETY ABOUT BEING IN THE HOSPITAL. PER REPORT HE OFTEN WONT SPEAK TO STAFF AT ALL AND REMAINS VERY WITHDRAWN. PT SITTING UP IN BED CALL LIGHT IN REACH. PT RESPONDING TO STAFF VERBALLY UNTIL MENTION OF FURTHER HOSPITALIZATION WAS DISCUSSED. PER REPORT PT WAS ASKING QUESTIONS ABOUT HIS DISCHARGE LAST NIGHT (THE MOST INTERACTIVE HE HAS BEEN). PT ON MONITORS TO PREVENT FALLS.
--- NOTE | 2019-11-12 13:42 | NUR ---
PT APPEARS TO BE VERY WITHDRAWN FORM STAFF REFUSING MEDICATIONS AND MOST OF MEALS. PT DID CONFESS TO FEELING SOME STOMACH DISCOMFORT. WILL ATTEMPT TO MEDICATE IF PT IS WILLING TO TAKE MEDICATION.
--- NOTE | 2019-11-12 16:32 | NUR ---
SHIFT SUMMARY- PT ALERT TO SELF DIFFICULT TO ACCERTAIN PT COGNITION D/T HIS WITHDRAWN DEMEANOR. PT WAS WILLING TO TAKE PO ZOFRAN FOR STOMACH UPSET BUT STAFF COULD NOT CONVINCE HIM TO TAKE HIS ABX THIS MORNING. PT WAS WILLING (WITH PERSUASION) TO TAKE THE TYLENOL FOR HIS SLIGHT TEMP 99.6-100.0. WILL REASSESS TEMP SHORTLY. PT HAS NO IV ACCESS ORDERED. PT HAS BEEN INDEPENDENT TO THE BATHROOM AND STATED HE HAS GONE TO THE BATHROOM BUT WILL NOT TELL STAFF HOW MANY TIMES, CAMERAS STATED HE HAS GONE THREE TIMES AT MINIMUM THIS SHIFT.
--- NOTE | 2019-11-12 16:32 | NUR ---
PT REFUSING TO TELL ME HOW MANY TIMES HE HAS VOIDED.
--- NOTE | 2019-11-12 19:40 | NUR ---
ASSUMED CARE: WENDIE RESPONDED SOME TO ME TODAY. ANSWERED ALL QUESITONS. BUT MORE WITHDRAWN AND FLAT TODAY THEN HE HAS BEEN WITH ME. TRIED TO TALK TO HIM ABOUT HIS LIFE, HE DID NOT WANT TO TALK. HE JUST STARED AT THE [place]. MILD PAIN IN ABDOMEN. HAS NOT EATEN MUCH TODAY, ASKED IF HE WAS NOT HUNGRY OR IF SOMETHING WAS WRONG, HE DIDN'T ANSWER. JUST ASKED FOR ICE WATER. WILL TRY TO GIVE NIGHT MEDS TONIGHT AND GIVE HIM A SNACK TO SEE IF HE WILL EAT IT. CALL LIGHT IN REACH.
--- NOTE | 2019-11-13 04:34 | NUR ---
SHIFT SUMMARY; WENDIE WAS MORE WITHDRAWN AT START OF SHIFT. HE WAS NOT INTERACTIVE MUCH HE HAD BEEN PRIOR TWO NIGHTS. HE DENIED ANY PAIN OR DISCOMFORT. OFFERED HIM FOOD HE DENIED IT. JUST WANTED TO BE LEFT ALONE. HE DID TAKE HIS MEDS WITH NO PROBLEMS. OTHER THEN THAT HAS BEEN INDEPENDENT IN THE ROOM, NO ACUTE CHANGES OR CONCERNS. WILL CONTINUE TO MONITOR TILL DAY SHIFT ARRIVES.
[2019-11-13 05:11] LABS: Hemoglobin 15.1 g/dL (13.5-17.5); Mean Corpuscular HGB 29.6 pg (26.0-34.0); Mean Corpuscular HGB Conc 32.8 g/dL (31.5-36.5); Mean Corpuscular Volume 90 fL (80-100); Mean Platelet Volume 9.9 fL (9.1-12.4); Platelet Count 904 K/mm3 (150-400); RDW Coefficient Variation 13.8 % (11.7-14.2); RDW Standard Deviation 45.9 fL (35.1-46.3); White Blood Cell Count 29.64 K/mm3 (4.00-11.30)
[2019-11-13 05:32] LABS: Bun/Creatinine Ratio 14.2 (12.0-20.0); Calcium, Blood 9.2 mg/dL (8.5-10.1); Creatinine, Blood 1.34 mg/dL (0.60-1.20); Potassium, Blood 4.4 mmol/L (3.5-5.5)
--- NOTE | 2019-11-13 11:05 | NUR ---
ORDERED REPEAT CT ABDOMEN WITH CONTRAST HOWEVER PT HAS NO IV ACCESS. CALLED DR GOVEA AND ORDER WAS CHANGED TO WITHOUT CONTRAST.
--- NOTE | 2019-11-13 18:00 | NUR ---
SHIFT SUMMARY- MUTLIPLE ATTEMPTS TO ACHIEVE A CT OF THE ABDOMEN. PT REFUSED ALL ATTEMPTS TO CONVINCE HIM TO HAVE THE IMMAGE DONE. SPOKE TO DR GOVEA AND SHE IS AWARE. SHE STATED WE CAN WAIT AND TRY AGAIN TOMORROW. PT SISTER CALLED FOR AN UPDATE, SHE STATED SHE NOW HAS TEMPORARY [employer] AND SHE PLANS TO DRIVE HERE FROM [place] SOON HER APPOINTMENT HAS PASSED ON October. PT HAS BEEN INDEPENDENT IN THE ROOM T/O THE DAY. PT CONTINUES TO BE WITHDRAWN FROM STAFF BUT WAS WILLING TO TAKE HIS ABX ORDERED.
--- NOTE | 2019-11-14 06:32 | NUR ---
11/14/19 0600 PT WATCHING TV. DENIES ANY C/O PAIN OR OTHER S/S. VITALS STABLE. UNEVENTFUL NIGHT.
[2019-11-14 08:33] LABS: BASOPHILS ABSOLUTE AUTO 0.11 K/mm3 (0.00-0.23); BASOPHILS PERCENT AUTO 1 % (0-2); EOSINOPHILS PERCENT AUTO 1 % (0-6); Hematocrit 44.3 % (37.0-53.0); Hemoglobin 14.9 g/dL (13.5-17.5); IMMATURE GRAN ABSOLUTE AUTO 0.13 K/mm3 (0.00-0.10); IMMATURE GRAN PERCENT AUTO 1 % (0-1); LYMPHOCYTES ABSOLUTE AUTO 2.06 K/mm3 (0.84-5.20); LYMPHOCYTES PERCENT AUTO 13 % (21-46); MONOCYTES ABSOLUTE AUTO 1.88 K/mm3 (0.16-1.47); MONOCYTES PERCENT AUTO 12 % (4-13); Mean Corpuscular HGB 30.2 pg (26.0-34.0); Mean Corpuscular HGB Conc 33.6 g/dL (31.5-36.5); Mean Corpuscular Volume 90 fL (80-100); Mean Platelet Volume 9.9 fL (9.1-12.4); NEUTROPHILS ABSOLUTE AUTO 11.94 K/mm3 (1.96-9.15); NEUTROPHILS PERCENT AUTO 74 % (41-73); Platelet Count 799 K/mm3 (150-400); RDW Coefficient Variation 13.8 % (11.7-14.2); RDW Standard Deviation 45.1 fL (35.1-46.3); Red Blood Cell Count 4.93 M/mm3 (4.30-5.90); White Blood Cell Count 16.22 K/mm3 (4.00-11.30)
[2019-11-14 08:54] LABS: Anion Gap 9 mmol/L (6-16); Blood Urea Nitrogen 21 mg/dL (8-24); Bun/Creatinine Ratio 18.6 (12.0-20.0); CO2, Blood 21 mmol/L (21-32); Calcium, Blood 9.1 mg/dL (8.5-10.1); Chloride, Blood 105 mmol/L (98-108); Creatinine, Blood 1.13 mg/dL (0.60-1.20); Glomerular Filtration Rate >60 (60-); Glucose, Blood 86 mg/dL (70-99); Sodium, Blood 135 mmol/L (136-145)
--- NOTE | 2019-11-14 16:18 | NUR ---
SHIFT SUMMARY- PT SEEMS TO BE FEELING BETTER THIS EVENING THAN THE TWO DAYS PRIOR. PT HAS BEEN A LITTLE MORE ACTIVE AND SEEMS MORE IRRITABLE. VERY IRRITATED WITH STAFF NOT DOING WHAT HE WANTS IMMEDIATELY. PT DOES NOT VERBILIZE OFTEN. HE HAS NOT EATEN ANY FOOD TODAY C/O ANUSEA DECLINED NAUSEA MEDS UNTIL 1400 OR SO THEN HE WAS MEDICATED WITH ZOFRAN. PT DOES NOT LIKE TO MAKE EYE CONTACT, HE WILL ANSWER SOME QUESTIONS OTHER TIMES HE JUST STARTES OFF INTO THE DISTANCE.
--- NOTE | 2019-11-14 16:57 | NUR ---
PT JUST ASKED STAFF TO DIAL HIS SISTERS PHONE AND SEEMED TO REALLY WANT TO TALK TO HER. THERE WAS NO ANSWER STAFF CALLED AND LEFT A MESSAGE TELLING THE SISTER TO PLEASE CALL THE PT WANTS TO SPEAK TO HER. LEFT CONTACT NUMBER.
--- NOTE | 2019-11-14 18:07 | NUR ---
PT ACCEPTED PHONE CALL FROM HIS SISTER THIS EVENING AND HAS BEEN SPEAKING TO HER FOR THE PAST 30 MINUTES. DINNER TRAY IS BEING HELD UNTIL THE PT IS READY FOR IT.
[2019-11-15 05:04] LABS: BASOPHILS ABSOLUTE AUTO 0.12 K/mm3 (0.00-0.23); BASOPHILS PERCENT AUTO 1 % (0-2); EOSINOPHILS ABSOLUTE AUTO 0.14 K/mm3 (0.00-0.68); EOSINOPHILS PERCENT AUTO 1 % (0-6); Hematocrit 45.5 % (37.0-53.0); Hemoglobin 14.6 g/dL (13.5-17.5); IMMATURE GRAN PERCENT AUTO 1 % (0-1); LYMPHOCYTES ABSOLUTE AUTO 2.05 K/mm3 (0.84-5.20); LYMPHOCYTES PERCENT AUTO 19 % (21-46); MONOCYTES ABSOLUTE AUTO 1.36 K/mm3 (0.16-1.47); MONOCYTES PERCENT AUTO 12 % (4-13); Mean Corpuscular HGB 29.1 pg (26.0-34.0); Mean Corpuscular HGB Conc 32.1 g/dL (31.5-36.5); Mean Corpuscular Volume 91 fL (80-100); NEUTROPHILS ABSOLUTE AUTO 7.25 K/mm3 (1.96-9.15); NEUTROPHILS PERCENT AUTO 66 % (41-73); Platelet Count 908 K/mm3 (150-400); RDW Coefficient Variation 13.7 % (11.7-14.2); RDW Standard Deviation 45.4 fL (35.1-46.3); Red Blood Cell Count 5.02 M/mm3 (4.30-5.90); White Blood Cell Count 11.02 K/mm3 (4.00-11.30)
[2019-11-15 05:41] LABS: Albumin, Blood 2.3 g/dL (3.4-5.0); Anion Gap 9 mmol/L (6-16); Blood Urea Nitrogen 23 mg/dL (8-24); Bun/Creatinine Ratio 19.2 (12.0-20.0); CO2, Blood 22 mmol/L (21-32); Calcium, Blood 9.1 mg/dL (8.5-10.1); Chloride, Blood 106 mmol/L (98-108); Glomerular Filtration Rate >60 (60-); Glucose, Blood 97 mg/dL (70-99); Phosphorus, Blood 4.1 mg/dL (2.5-4.9); Potassium, Blood 3.9 mmol/L (3.5-5.5); Sodium, Blood 137 mmol/L (136-145)
--- NOTE | 2019-11-15 05:50 | NUR ---
11/15/19 0550 PT SLEPT WELL. UP TO VOID PRN. DECLINED PAIN OR NAUSEA THIS SHIFT. POOR APPETITE. JENNIFER ANXIOUS THIS AM THAN LAST NIGHT. UNEVENTFUL NIGHT.
--- NOTE | 2019-11-15 17:50 | NUR ---
SHIFT SUMMARY: PT IS A&O AND IS SLOW TO ANSWER QUESTIONS AT TIMES. HE HAS A FLAT AFFECT. HE HAS RESTED QUIETLY IN ROOM FOR MOST OF THE SHIFT. GETTING UP TO SHOWER ONCE. HE IS INDEPENDENT IN ROOM. HE HAS BEEN COOPERATIVE WITH CARE. VSS. WILL CONTINUE TO MONITOR UNTIL GIVING REPORT TO NIGHT RN.
--- NOTE | 2019-11-16 06:46 | NUR ---
11/16/19 0600 PT VERY NON-COMMUNICATIVE TOWARDS STAFF. WILL ANSWER OCC. QUESTIONS AND OTHER TIMES WILL JUST STAY QUIET AND STARE AT RN. VITALS STABLE. SLEPT WELL ON AND OFF. SELF TO BATHROOM PRN.
--- NOTE | 2019-11-16 09:38 | NUR ---
PATIENT REFUSED TO TAKE MORNING MEDS. AFTER MULTIPLE ATTEMPTS AT DISCUSSING THE IMPORTANCE OF THE ABX AND PATIENT HESITATING CONTINUOUSLY, THIS RN WAS ABLE TO CONVINCE PT TO TAKE ONE MEDICATION (LEVAQUIN). PT REFUSING ALL OTHER MEDS AND NOT WANTING BREAKFAST. WOULD NOT EXPLAIN TO THIS RN WHY HE IS REFUSING FOOD AND MEDS. WILLING TO HAVE ICE CHIPS ONLY.
--- NOTE | 2019-11-16 16:08 | NUR ---
Shift Summary A/O x to self and hospital. Presents with flat affect, extremely slow to respond. Refuses meals and meds this shift. Denies pain, nausea, vomiting, diarrhea. Patient appears to exhibit paranoia as evidence by flat affect, lack of communication, has behaviors resembling frustration when talked to (rubbing forehead, sighing, and sliding/moving in bed), refusing meds, and refusing food. No signs of agitation or aggressive behavior. Will continue to monitor.
--- NOTE | 2019-11-17 05:27 | NUR ---
SHIFT SUMMARY: PT IS ALERT AND CONFUSED. PT IS INDEPENDENT IN THE ROOM. PT DID NOT USE HIS CALL LIGHT OVERNIGHT. PT IS CALM AND COOPERATIVE WITH CARE. PT REFUSED EVENING MEDICATIONS. PT DENIES PAIN, NAUSEA, VOMITING, AND SOB. PT SLEPT MUCH OF THE NIGHT WHEN NOT DISTURBED. NO ACUTE CHANGES OR COMPLICATIONS OVERNIGHT. BED IN LOW POSITION, CALL LIGHT WITHIN REACH. WILL REPORT TO DAY NURSE.
--- NOTE | 2019-11-17 17:17 | NUR ---
SHIFT SUMMARY PT AWAKE AT START OF SHIFT, RESTING QUIETLY IN BED, DURING REPORT. PT SOON OOB, AND WALKING AROUND IN RM. PER SHIFT REPORT, PT IS INDEPENDENT TO BTHRM. PT OUT TO COREA, SITTING IN CHAIR FOR A WHILE. PUSHED BS TABLE UP AND DOWN COREA FOR A WHILE. PT REFUSED AM MEDS, BUT LATER TOOK THEM. PT IS VERY CONFUSED AND DISORIENTED. HX OF PARANOID SCHIZOPHRENIA. NO ACUTE DISTRESS NOTED. WAITING FOR PLACEMENT/DISCHARGE; SISTER TO GET HERE FROM OUT OF TOWN. CALL LT IN REACH.
--- NOTE | 2019-11-17 19:47 | NUR ---
REFUSED VITAL SIGNS AT THIS TIME.
--- NOTE | 2019-11-18 03:25 | NUR ---
SHIFT SUMMARY PATIENT HAD NO ACUTE CHANGES OBSERVED. AXOX 2 AND INDEPENDENT IN ROOM. NO IV ACCESS. REFUSING VITALS BUT WILL TRY AGAIN. REFUSED MEDICATION EXCEPT PO ABX. DENIES PAIN, SOB, AND N./V. SAT ON SIDE OF BED FIRST PART OF SHIFT AND THEN WATCHED TV. HX SCHIZOPHENIA. CALL LIGHT IN REACH. BED IN LOWEST POSITION. WILL CONTINUE TO MONITOR UNTIL DAY SHIFT NURSE ASSUMES CARE.
--- NOTE | 2019-11-18 04:55 | NUR ---
PATIENT REFUSED SECOND SET OF VITALS WITH TWO ATTEMPTS. PATIENT AGITATED AND SWINGING ARMS AT STAFF. CALL LIGHT IN REACH.
--- NOTE | 2019-11-18 18:16 | NUR ---
PATIENT ALERT. WITHDRAWN. WAS COOPERATIVE FOR MORNING MEDS, BUT REFUSED AFTERNOON ANTIBIOTIC. UNLABORED RESPIRATIONS. THE SECOND TIME THIS RN WENT INTO ROOM, PATIENT ASKS "WHY ARE YOU IN HERE SO MUCH?" SLEEPING MOST OF SHIFT. INDEPENDENT IN ROOM. WCTM
--- NOTE | 2019-11-18 21:44 | NUR ---
PATIENT REFUSING VITAL SIGNS AND MEDICATION. CALL LIGHT IN REACH.
--- NOTE | 2019-11-19 03:22 | NUR ---
SHIFT SUMMARY PATIENT HAD NO ACUTE CHANGES OBSERVED. ALERT TO SELF AND INDEPENDENT IN ROOM. REFUSING VITALS AND MEDICATION ADMINISTRATION. NO IV ACCESS. DENIES PAIN, SOB, AND N/V. PATIENT IN BED EARLIER THAN LAST NOCX SHIFT. HX SCHIZOPHENIA. SISTER CALLED TO CHECK IN ON PATIENT.REPORTS WILL DRIVE FROM [place] TO FACILITY SHORTLY AND STAY FOR A FEW MONTHS IF NEEDED. CALL LIGHT IN REACH. BED IN LOWEST POSITION. WILL CONTINUE TO MONITOR UNTIL DAY SHIFT NURSE ASSUMES CARE.
--- NOTE | 2019-11-19 05:19 | NUR ---
LAB DRAW AND 2ND SET OF VITALS OBTAINED. 1ST SET OF VITALS REFUSED. CALL LIGHT IN REACH.
[2019-11-19 05:34] LABS: BASOPHILS ABSOLUTE AUTO 0.12 K/mm3 (0.00-0.23); BASOPHILS PERCENT AUTO 1 % (0-2); EOSINOPHILS ABSOLUTE AUTO 0.28 K/mm3 (0.00-0.68); EOSINOPHILS PERCENT AUTO 2 % (0-6); Hematocrit 45.7 % (37.0-53.0); Hemoglobin 14.9 g/dL (13.5-17.5); IMMATURE GRAN PERCENT AUTO 1 % (0-1); LYMPHOCYTES ABSOLUTE AUTO 2.49 K/mm3 (0.84-5.20); LYMPHOCYTES PERCENT AUTO 21 % (21-46); MONOCYTES ABSOLUTE AUTO 1.39 K/mm3 (0.16-1.47); MONOCYTES PERCENT AUTO 12 % (4-13); Mean Corpuscular HGB 29.4 pg (26.0-34.0); Mean Corpuscular HGB Conc 32.6 g/dL (31.5-36.5); Mean Corpuscular Volume 90 fL (80-100); Mean Platelet Volume 9.7 fL (9.1-12.4); NEUTROPHILS ABSOLUTE AUTO 7.49 K/mm3 (1.96-9.15); NEUTROPHILS PERCENT AUTO 63 % (41-73); Platelet Count 690 K/mm3 (150-400); RDW Coefficient Variation 13.9 % (11.7-14.2); Red Blood Cell Count 5.06 M/mm3 (4.30-5.90); White Blood Cell Count 11.87 K/mm3 (4.00-11.30)
[2019-11-19 05:57] LABS: Anion Gap 4 mmol/L (6-16); Blood Urea Nitrogen 14 mg/dL (8-24); Bun/Creatinine Ratio 11.9 (12.0-20.0); CO2, Blood 27 mmol/L (21-32); Calcium, Blood 8.8 mg/dL (8.5-10.1); Chloride, Blood 109 mmol/L (98-108); Creatinine, Blood 1.18 mg/dL (0.60-1.20); Glomerular Filtration Rate >60 (60-); Glucose, Blood 92 mg/dL (70-99); Magnesium, Blood 1.8 mg/dL (1.6-2.4); Potassium, Blood 4.1 mmol/L (3.5-5.5); Sodium, Blood 140 mmol/L (136-145)
--- NOTE | 2019-11-19 09:44 | NUR ---
USES BATHROOM ON OWN AND WILL NOT TELL STAFF WHEN HE URINATES OR HAS B.M
--- NOTE | 2019-11-19 17:15 | NUR ---
ALERT TO SELF. DIFFICULT TO DO EVAL PATIENT DOES NOT ANSWER QUESTIONS.FOOD CHANGED TO PREPACKAGED ITEMS AND APPEARS TO EAT MORE.MEDS GIVEN WHEN PATIENT IS EATTING PATIENT MORE COOPERATIVE. NO C/O. USED BATHROOM AND HAD B.M. PATIENT NORMALLY DOES NOT OFFER UP IF HE HAS URINATED OR HAD B.M. POOR EYE CONTACT. UNLABORED RESPIRATIONS. AWAITING PLACEMENT WITH SISTER. [facility]
--- NOTE | 2019-11-19 19:46 | NUR ---
Pt resting quietly in bed at this time. No noted acute physical distress. Call light in reach.
--- NOTE | 2019-11-19 21:51 | NUR ---
PT RESTING IN BED. NURSE OFFERED HS MEDICATIONS, ANTIBIOTIC. PT REFUSED - SHOOK HEAD NO AND REFUSED TO RESPOND OTHERWISE TO QUESTIONS ASKED. NO NOTED ACUTE PHYSICAL DISTRESS. CALL LIGHT IN REACH. WILL CONTINUE TO MONITOR.
--- NOTE | 2019-11-20 05:59 | NUR ---
SHIFT SUMMARY PT HAS BEEN RESTING QUIETLY WITH FEW INTERRUPTIONS THIS SHIFT. REFUSED HS MEDS, SHAKING HEAD NO, DID NOT VERBALIZE. FLUIDS AND NUTRITION IN REACH. CALL LIGHT IN REACH.
--- NOTE | 2019-11-20 09:30 | NUR ---
PT SLEEPING AWAKENS EASILY, IS NON-VERBAL AT THIS TIME, PT SHKES HEAD NO IN REFUSAL TO TAKE HIS AM ORAL MEDICATIONS, AND BREAKFAST, CALL LIGHT IN REACH, ENCOURAGED THE PT TO LET US KNOW WHEN HE WAS READY TO TAKE HIS MEDICATION OR IF HE NEEDED ANY THING
[2019-11-20 14:29] LABS: BASOPHILS PERCENT AUTO 1 % (0-2); EOSINOPHILS ABSOLUTE AUTO 0.24 K/mm3 (0.00-0.68); EOSINOPHILS PERCENT AUTO 2 % (0-6); Hematocrit 45.9 % (37.0-53.0); Hemoglobin 14.9 g/dL (13.5-17.5); IMMATURE GRAN ABSOLUTE AUTO 0.05 K/mm3 (0.00-0.10); IMMATURE GRAN PERCENT AUTO 1 % (0-1); LYMPHOCYTES ABSOLUTE AUTO 2.04 K/mm3 (0.84-5.20); LYMPHOCYTES PERCENT AUTO 20 % (21-46); MONOCYTES ABSOLUTE AUTO 1.11 K/mm3 (0.16-1.47); MONOCYTES PERCENT AUTO 11 % (4-13); Mean Corpuscular HGB 29.2 pg (26.0-34.0); Mean Corpuscular HGB Conc 32.5 g/dL (31.5-36.5); Mean Corpuscular Volume 90 fL (80-100); Mean Platelet Volume 9.8 fL (9.1-12.4); NEUTROPHILS ABSOLUTE AUTO 6.55 K/mm3 (1.96-9.15); NEUTROPHILS PERCENT AUTO 65 % (41-73); Platelet Count 660 K/mm3 (150-400); RDW Coefficient Variation 13.6 % (11.7-14.2); RDW Standard Deviation 45.3 fL (35.1-46.3); Red Blood Cell Count 5.11 M/mm3 (4.30-5.90); White Blood Cell Count 10.09 K/mm3 (4.00-11.30)
[2019-11-20 14:53] LABS: Alanine Aminotransfer (ALT/SGP 25 U/L (12-78); Albumin, Blood 2.6 g/dL (3.4-5.0); Albumin/Globulin Ratio 0.6 (0.8-1.8); Alk Phos 79 U/L (50-136); Anion Gap 5 mmol/L (6-16); Aspartate Aminotrans (AST/SGOT 21 U/L (12-37); Bilirubin, Total 0.2 mg/dL (0.1-1.0); Blood Urea Nitrogen 16 mg/dL (8-24); Bun/Creatinine Ratio 15.5 (12.0-20.0); CO2, Blood 27 mmol/L (21-32); Chloride, Blood 107 mmol/L (98-108); Creatinine, Blood 1.03 mg/dL (0.60-1.20); Globulin, Blood 4.3 g/dL (2.2-4.0); Glomerular Filtration Rate >60 (60-); Glucose, Blood 102 mg/dL (70-99); Potassium, Blood 3.9 mmol/L (3.5-5.5); Sodium, Blood 139 mmol/L (136-145); Total Protein, Blood 6.9 g/dL (6.4-8.2)
--- NOTE | 2019-11-20 16:53 | NUR ---
PATIENT HAS BEEN SLEEPING MOST OF THE DAY
--- NOTE | 2019-11-20 16:53 | NUR ---
PT IS A/OX3, THE PT TODAY HAS BEEN NONCOMPLIANT WITH MEDS AND IRRITABLE, REFUSING ALL CARE THIS AM THIS AFTERNNON HE AGREED TO LET THE AM ORDERED LAB DRAW BE DONE, PT ATE SOME OF HIS LUNCH, STILL REFUSING TO TAKE ANY MEDS FROM THIS RN, PT APPEARS TO BE BREATHING EASILY ON RA, THE PT HAS REMAINED IN BED T/O THE DAY WITHOUT RESTRICTION, CALL LIGHT IN REACH, NO OTHER CHANGES NOTICED THIS SHIFT
--- NOTE | 2019-11-20 20:43 | NUR ---
QUIET, INTERMITTENT SLEEPING IN BED. REFUSED HS MEDS, ENCOURAGED TO DRINK FLUIDS. FLUIDS AND NUTRITION IN REACH, ALONG WITH CALL LIGHT. RAILS UP X 2. WILL CONTINUE TO MONITOR.
--- NOTE | 2019-11-21 04:35 | NUR ---
SHIFT SUMMARY REMAINS QUIET AND WITHDRAWN. REFUSED ALL MEDS AND LIMITS INTERACTION WITH STAFF. ENCOURAGED TO DRINK FLUIDS AND EAT. DURRING ROUNDING, APPEARED TO BE RESTING QUIETLY WITHOUT NOTED ACUTE DISTRESS. CALL LIGHT IN REACH
--- NOTE | 2019-11-21 07:37 | NUR ---
THIS AM PT IS AWAKE DENIES ANY PAIN, ALREADY REFUSING MEDICATIONS, PT IS IRRITABLE TO THIS RN, CALL LIGHT IN REACH
--- NOTE | 2019-11-21 09:30 | NUR ---
ATTEMPTED TO GIVE THE PT HIS AM MEDICATIONS WHILE DR. REDDY WAS PRESENT IN THE ROOM, THE PT CONTINUES TO REFUSE HIS MEDICATION, LAB DRAW WAS ATTEMPTED AT THIS TIME AND THE PT DECLINED TO PARTICIPATE WITH THAT ALSO
[2019-11-21 12:44] LABS: BASOPHILS ABSOLUTE AUTO 0.14 K/mm3 (0.00-0.23); BASOPHILS PERCENT AUTO 1 % (0-2); EOSINOPHILS ABSOLUTE AUTO 0.27 K/mm3 (0.00-0.68); EOSINOPHILS PERCENT AUTO 3 % (0-6); Hematocrit 46.3 % (37.0-53.0); Hemoglobin 15.1 g/dL (13.5-17.5); IMMATURE GRAN ABSOLUTE AUTO 0.06 K/mm3 (0.00-0.10); IMMATURE GRAN PERCENT AUTO 1 % (0-1); LYMPHOCYTES ABSOLUTE AUTO 2.09 K/mm3 (0.84-5.20); LYMPHOCYTES PERCENT AUTO 20 % (21-46); MONOCYTES ABSOLUTE AUTO 1.28 K/mm3 (0.16-1.47); MONOCYTES PERCENT AUTO 12 % (4-13); Mean Corpuscular HGB 29.6 pg (26.0-34.0); Mean Corpuscular HGB Conc 32.6 g/dL (31.5-36.5); Mean Corpuscular Volume 91 fL (80-100); Mean Platelet Volume 9.9 fL (9.1-12.4); NEUTROPHILS ABSOLUTE AUTO 6.49 K/mm3 (1.96-9.15); NEUTROPHILS PERCENT AUTO 63 % (41-73); Platelet Count 591 K/mm3 (150-400); RDW Coefficient Variation 13.7 % (11.7-14.2); RDW Standard Deviation 45.8 fL (35.1-46.3); White Blood Cell Count 10.33 K/mm3 (4.00-11.30)
[2019-11-21 13:07] LABS: Alanine Aminotransfer (ALT/SGP 28 U/L (12-78); Albumin, Blood 2.6 g/dL (3.4-5.0); Albumin/Globulin Ratio 0.6 (0.8-1.8); Alk Phos 81 U/L (50-136); Anion Gap 4 mmol/L (6-16); Aspartate Aminotrans (AST/SGOT 22 U/L (12-37); Bilirubin, Total 0.2 mg/dL (0.1-1.0); Blood Urea Nitrogen 17 mg/dL (8-24); Bun/Creatinine Ratio 15.9 (12.0-20.0); CO2, Blood 29 mmol/L (21-32); Calcium, Blood 8.8 mg/dL (8.5-10.1); Chloride, Blood 106 mmol/L (98-108); Creatinine, Blood 1.07 mg/dL (0.60-1.20); Globulin, Blood 4.3 g/dL (2.2-4.0); Glomerular Filtration Rate >60 (60-); Glucose, Blood 103 mg/dL (70-99); Potassium, Blood 3.9 mmol/L (3.5-5.5); Sodium, Blood 139 mmol/L (136-145); Total Protein, Blood 6.9 g/dL (6.4-8.2)
--- NOTE | 2019-11-21 17:18 | NUR ---
PT IS A/OX3, PT HAS BEEN UNCOOPERATIVE FOR MOST OF THE DAY, REFUSING ALL AM MEDICATIONS AND LAB DRAW THIS AM, HOWEVER, THE PT DID ALLOW THE LAB DRAW LATER THE PT HAS REMAINED IN THE BED T/O THE DAY, THE PTS SISTER CALLED TODAY TO CHECK ON THE PT AND REQUESTED TO TALK WITH HIM, HOWEVER, THE PT DECLINED TO TALK WITH HER, PTS SISTER REPORTED THAT SHE WOULD ARRIVE TO [place] TO SEE THE PT SOMETIME THIS COMING FRIDAY, PTS SISTER WAS REQUESTING THAT DR. TENA GIVE HER A CALL, THE SISTER WAS ADVISED TO MAKE THAT REQUEST ON FRIDAY WHEN THE DOCTOR WOULD BE AVAILABLE, THE PT APPEARS TO BE BREATHING EASILY AT REST, CALL LIGHT IN REACH
--- NOTE | 2019-11-21 19:37 | NUR ---
AFFECT FLAT, BEHAVIOR WITHDRAWN. VIOCED FEW WORDS TO STAFF WHEN QUESTIONS ASKED. PT ENCOURAGED TO DRINK FLUIDS AND EAT FOOD IN HIS REACH. CALL LIGHT IN REACH. NO NOTED ACUTE PHYSICAL DISTRESS AT THIS TIME. WILL CONTINUE TO MONITOR.
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
--- NOTE | 2019-11-23 04:28 | NUR ---
ASSISTANT COMMUNITY DIRECTOR SUMMARY NO ACUTE CHANGES THIS SHIFT. PT CONTINUES TO BE WITHDRAWN AND WILL NOT ALLOW FULL ASSESSMENTS. PT SEEMS IN NO DISTRESS AND HAS SLEPT MOST OF THE SHIFT. DENIES PAIN, SOB, N/V. PT DID TAKE NIGHT MEDICATIONS WITHOUT ISSUE. VSS, WILL CONTINUE TO MONITOR.
--- NOTE | 2019-11-23 14:34 | NUR ---
ATTEMPT TO CONTACT SISTER: ATTEMPTED TO CONTACT SISTER DIANE TO DISCUSS DISCHARGE PLAN. LEFT A MESSAGE ON HER PHONE TO PLEASE CONTACT US.
--- NOTE | 2019-11-23 16:50 | NUR ---
SISTER'S ARRIVAL: SISTER DIANE CALLED THE RN BACK. SHE IS PLANNING ON LEAVING [facility] AND ARRIVING TO [place] FRIDAY OR FRIDAY. SHE HAS CLEARED HER SCHEDULE TO BE OUT HERE 6 WEEKS. SHE REITERATED THAT SHE CANNOT BE HERE PERMANENTLY. SHE EXPRESSED MAJOR CONCERNS WITH BEING ABLE TO CARE FOR THE PATIENT AT HIS HOME. SHE WAS UNDER THE IMPRESSION THAT THE PATIENT WAS GOING TO REQUIRE AN INPATIENT PLACEMENT. SHE DID EXPRESS THAT THE BEST SCENARIO WOULD BE FOR HIM TO GO HOME. SHE ALSO HAS CONCERNS TO HOW WE CAN BE SURE THAT THE INFECTION IS RESOLVED IF THE PATIENT IS REFUSING A FOLLOW-UP ABDOMINAL SCAN. ENCOURAGED HER TO TOUCH BASE WITH CARE MANAGEMENT TOMORROW TO DISCUSS BARRIERS TO DISCHARGE. UPDATED HER ON THE PATIENT'S AFFECT AND CURRENT STATUS. SHE IS PLANNING ON CALLING [facility] TOMORROW BETWEEN 14:00-16:30.
--- NOTE | 2019-11-23 17:59 | NUR ---
END OF SHIFT SUMMARY: PATIENT CONTINUED TO BE WITHDRAWN. PATIENT ALLOWED PARTIAL PHYSICAL ASSESSMENT. ANSWERED SOME QUESTIONS WITH MINIMAL RESPONSES. PATIENT DENIED PAIN OR DISCOMFORT. PATIENT DENIED BOWEL MOVEMENT TODAY. PATIENT DID EAT SOME OF THE FOOD OFF OF HIS TRAY AND DRANK ALL 3 ENSURES AT ONE TIME TODAY. PATIENT CONTINUES TO BE INDEPENDENT IN THE ROOM. WHEN CUED, PATIENT EITHER DENIES NEEDS OR REQUESTS ICE WATER. PATIENT REFUSES MOST CARE. PATIENT'S SISTER DIANE CALLED THIS EVENING TO UPDATE STAFF ON HER TRAVEL PLANS. SHE WILL BE HERE FRIDAY OR FRIDAY. SHE HAS SOME CONCERNS ABOUT HIS DISCHARGE AND HER ROLE. SHE PLANS ON TOUCHING BASE WITH DR. COTE AND CARE MANAGEMENT TOMORROW. SEE NURSES NOTE.
--- NOTE | 2019-11-24 04:55 | NUR ---
PEG DRIVER SUMMARY NO ACUTE CHANGES. PT AAOX3 AND INDEPENDENT IN ROOM. CONTINUES TO BE WITHDRAWN AND IRRITABLE WITH CARE. PT WILL COMPLAIN OF THINGS BUT WILL REFUSE ANY SOLUTIONS OFFERED TO HIM. FOR EXAMPLE, PT COMPLAINED OF NAUSEA BUT REFUSED NAUSEA MEDS OR SOMETHING TO SETTLE HIS STOMACH. PT LATER STATED HE WAS COLD BUT SAID NO WHEN ASKED IF HE WANTED AN EXTRA BLANKET OR THE THERMOSTAT TURNED UP. PT HAS SLEPT THE MAJORITY OF THE SHIFT. PER DAY SHIFT RN, PT'S SISTER IS DRIVING FROM [place] AND SHOULD SHOW UP THIS WEEKEND. SISTER DIANE IS WANTING TO SPEAK WITH PORT SURVEYOR TOMORROW AFTERNOON AND IS HOPING DR TENA WILL BE ABLE TO REASSESS PT LATER THIS MORNING SHE IS CONCERNED ABOUT TAKING CARE OF HIM AT HOME WITH HIS RECENT MENTAL HEALTH ISSUES. WILL PASS ON TO DAY SHIFT RN TO SPEAK WITH DR TENA LATER TODAY ABOUT PT BEING SAFE TO DC TO SISTER'S CARE. VSS, WILL CONTINUE TO MONITOR.
--- NOTE | 2019-11-24 09:21 | NUR ---
PT SLEEPING IN BED WITH BREAKFAST AT HIS SIDE. ASKED PT IF HE WANTED TO EAT OR TAKE HIS PILLS RIGHT NOW AND HE SAID NO I DON'T WANT THEM LEAVE ME ALONE.
--- NOTE | 2019-11-24 10:31 | NUR ---
ATTEMPTED TO COMPLETE ASSESSMENT AND GIVE MORNING MEDS TO PT WHEN HE REQUESTED A RAZOR TO SHAVE. PT REFUSED AND DIDN'T GIVE AN EXPLANATION OF WHY HE WOULDN'T ALLOW IT. CHANGED HIS LINENS WHILE SHAVING. DID NEED TO INSTRUCT PT TO GET OUT OF BED AND GO TO [place] TO SHAVE BECAUSE HE WAS GOING TO DO IT IN BED AND WAS COOPERATIVE WITH REQUEST.
--- NOTE | 2019-11-24 18:23 | NUR ---
PT HAS BEEN UP TO BATHROOM INDEPENDENTLY AND REPORTS "SOME" WHEN ASKED IF HES HAD A BM TODAY. DIDN'T ELABORATE DESPITE BEING ASKED QUESTIONS ABOUT SIZE/COLOR/ETC. EATING MOST OF FOOD PROVIDED BUT OTHERWISE DECLINING MOST CARE UNLESS HE REQUESTS IT HIMSELF.
--- NOTE | 2019-11-25 05:20 | NUR ---
PROFESSOR OF LITERATURE SUMMARY NO ACUTE CHANGES. PT STILL IRRITABLE AND WITHDRAWN. ONLY ALLOWING LIMITED PHYSICAL ASSESSMENT. HAS SLEPT THROUGH THE NIGHT. DENIES PAIN OR ANY OTHER CONCERNS. VSS, WILL CONTINUE TO MONITOR.
--- NOTE | 2019-11-25 17:27 | NUR ---
SHIFT SUMMARY ALERT AND ORIENTED, BUT DROWSY. AWAKENS TO VERBAL STIMULI. PATIENT IS WITHDRAWN AND AGITATED WITH STAFF INTERACTION. STATES HE "DOESNT WANT ANYTHING". NAUSEA, THIS MORNING, RESOLVED WITH ZOFRAN. TOLERATING PO. THIS MORNING, HE REFUSED HIS MEDICATIONS INITIALLY, BUT TOOK THEM WHOLE WITH WATER AFTER ENCOURAGEMENT. VSS. AWAITING SISTERS ARRIVAL FROM OUT OF STATE TO FINALIZE DISCHARGE PLANNING. CALL LIGHT WITHIN REACH. TURNS SELF. INDEPENDENT WITH ADL'S.
--- NOTE | 2019-11-26 04:41 | NUR ---
SHIFT SUMMARY PT IS FLAT AND WITHDRAWN DOES NOT WANT TO BE BOTHERED WITH STAFF.I WAS ABLE TO DO SOME OF MY ASSESSMENT ON PT BUT NOT A FULL ONE DUE TO REFUSAL. PT DID TAKE HIS HS MEDICATIONS. A/OX4. SLEEPS MOST OF THE SHIFT. DENIES NEEDS WHEN ASKED. VITALS STABLE. BED IN LOWEST POSITION, CALL LIGHT WITHIN REACH.
--- NOTE | 2019-11-26 18:39 | NUR ---
SHIFT SUMMARY WENDIE VERY WITHDRAWN, REFUSED FULL ASSESSMENT, SAYS HE DOESN'T WANT TO ANSWER QUESTIONS. SISTER DIANE CALLED, SHE SAYS SHE IS LEAVING TODAY, WILL AR[place]IVE [place] FRIDAY NIGHT AND WILL COME AND VISIT ON FRIDAY. PT STATES HE HAD A BM AND PASSED URINE THIS SHIFT. INDEP IN ROOM. WCTM
--- NOTE | 2019-11-26 20:32 | NUR ---
PT RESTING COMFORTABLY IN BED; PT TOOK H.S. MEDS WITHOUT ISSUE; DENIES PAIN OR NAUSEA; PT INTERACTING MINIMALLY WITH THIS NURSE HE APPEARS TO BE WITHDRAWN; SPEECH CLEAR.
--- NOTE | 2019-11-27 04:10 | NUR ---
SHIFT SUMMARY: 59 Y/O MALE RESTED COMFORTABLY ALL SHIFT; PT TOOK ALL H.S. MEDS WITHOUT ISSUE; PT CONTINUES TO BE WITHDRAWN, HOWEVER; PT DOES CHAT WITH STAFF WHEN ADDRESSED; BED LOW POSITION WITH CALL LIGHT AT SIDE.
--- NOTE | 2019-11-27 15:51 | NUR ---
PATIENT HAS BEEN TIRED AND SLEEPING THE MAJORITY OF THE SHIFT. VITALS STABLE. PATIENT COOPERATIVE WITH STAFF. MEDICATIONS TAKEN WITHOUT COMPLICATIONS. NO ACUTE CHANGES TO REPORT OF AT THIS TIME. WILL CONTINUE TO MONITOR AND PROVIDE CARE NEEDED.
--- NOTE | 2019-11-28 04:48 | NUR ---
SHIFT SUMMARY: 59 Y/O MALE RESTED COMFORTABLY ALL SHIFT; DENIES PAIN OR NAUSEA; PT CONTINUES TO BE VERY WITHDRAWN AND ONLY CONVERSING WITH NURSING STAFF MINIMALLY IF ADDRESSED; PT TOOK ALL NIGHT MEDS WELL; ALERT AND ORIENTED X 3; BED LOW POSITION WITH CALL LIGHT AT SIDE.
--- NOTE | 2019-11-28 14:34 | NUR ---
PATIENT HAS REMAINED IN HIS ROOM SLEEPING THE MAJORITY OF THE SHIFT. VITALS HAVE BEEN STABLE. PATIENT IS INDEPENDENT. NO ACUTE CHANGES TO REPORT ON AT THIS TIME. WILL CONTINUE TO MONITOR AND PROVIDE CARE NEEDED.
--- NOTE | 2019-11-29 05:19 | NUR ---
SHIFT SUMMARY NO ACUTE CHANGES THIS SHIFT. VSS. VERY WITHDRAWN, FLAT, IRRITABLE AT TIMES. UNABLE TO ASSESS FULL ORIENTATION FOR PT DOES NOT ANSWER ASSESSMENT QUESTIONS. DENIES PAIN, N/V OR DYSPNEA. IND IN ROOM. AWAITING SISTER TO ARRIVE IN [facility] FOR SAFE DC. CALL LIGHT IN REACH. WCTM.
--- NOTE | 2019-11-29 10:40 | NUR ---
SISTER SPOKE WITH PT'S SISTER ON THE PHONE, SHE IS HERE AT THE PT'S HOUSE CURRENTLY, SHE HAS QUESTIONS FOR THE CARE MANAGERS, MESSAGE LEFT FOR TACO RN, PT'S SISTER STRESSED THAT HE CANNOT COME HOME CURRENTLY WITH HER SHE HAS NOT SOLD HER HOUSE IN [place] YET AND SHE WILL BE TRAVELING BACK AND FORTH FROM [place] AND [place] FREQUENTLY AND HE WOULD BE LEFT AT HOME ALONE FOR EXTENDED PERIODS OF TIME
--- NOTE | 2019-11-29 16:57 | NUR ---
SHIFT SUMMARY PT VERY WITHDRAWN; HAS A FLAT AFFECT; AND CAN BE VERY IRRITABLE. PT PREFERS TO BE LEFT ALONE DURING THE DAY. PT HAS BEEN RESTING IN BED FOR THE MAJORITY OF THE DAY. HE DENIES ANY PAIN OR DISCOMFORT. HE REFUSED HIS MIRALAX THIS AM. AWAITING PLACEMENT. VS REVIEWED AND WNL FOR PT. CALL LIGHT IN REACH. WILL CONTINUE TO MONITOR.
--- NOTE | 2019-11-30 17:31 | NUR ---
SUMMARY PT RESTING QUIETLY IN BED, INDEPENDENT IN THE ROOM, FLAT AFFECT, WITHDRAWN, DOES NOT INITIATE ANY CONVERSATION, NO COMPLAINTS, WILL CONT TO MONITOR
--- NOTE | 2019-12-01 04:51 | NUR ---
FLIGHT STEWARD SUMMARY Slept soundly overnight. would not allow full phys. assessment, however did agree to take all HS medson schedule as well as a zofran for stomach discomfort and intermittant nausea. Patient on several bowel meds, however, and He did have a X Large BM yesterday. He was thinking he was constipated. Patient continues with flat apathetic affect overnight.
--- NOTE | 2019-12-01 17:37 | NUR ---
SHIFT SUMMARY: NO ACUTE EVENTS THIS SHIFT. QUIET, FLAT AFFECT. DENIED PAIN AND ANXIETY. HAD A SHOWER WITH SET UP ASSISTANCE. GOOD PO INTAKE TODAY. AWAITING PLACEMENT.
--- NOTE | 2019-12-02 06:34 | NUR ---
SHIFT SUMMARY ADMITTED FOR SEPSIS FROM PERFORATED DIVERTICULITIS. FULL CODE. AWAITING PLACEMENT VS. DC W/SISTER (WHO IS HIS GUARDIAN). PT HAS BEEN CALM AND COOPERATIVE. HE SLEPT THROUGH SHIFT. NO NEW CONCERNS.
--- NOTE | 2019-12-02 15:41 | NUR ---
SHIFT SUMMARY NO ACUTE CHANGES TO PRESENT THIS SHIFT. PT HAS REMAINED CALM AND CO-OP TODAY. STAYED IN BED WATCHING TV MOST OF THE DAY. PER SHIFT REPORT, PT WAS AWAKE AND WALKING AROUND RM DURING THE NIGHT. NO C/O, DENIED FURTHER NEEDS. PT CONTINUES TO WAIT PLACEMENT. ABDIFATAH BRUMFIELD IN TODAY, ASSISTING DR NESS. NO NEW ORDERS. CALL LT IN REACH.
--- NOTE | 2019-12-03 05:06 | NUR ---
JOINT TERMINAL ATTACK CONTROLLER SUMMARY NO ACUTE CHANGES. PT INDEPENDENT IN ROOM. REFUSED TO PARTICIPATE IN MAJORITY OF PHYSICAL ASSESSMENT. DENIES PAIN AND IS IN NO APPARENT DISTRESS. STILL VERY WITHDRAWN AND IRRITABLE WITH STAFF AT TIMES. VSS, WILL CONTINUE TO MONITOR.
--- NOTE | 2019-12-03 18:16 | NUR ---
SHIFT SUMMARY NO ACUTE CHANGES TO PRESENT THIS SHIFT. PT HAS REMAINED IN HIS RM. VERY IRRITABLE WITH CARE. REFUSING SOME MEDICATIONS. DOES NOT WANT TO BE BOTHERED. REFUSES ASSESSMENT FOR THE MOST PART. INDEPENDENT IN RM CALL LT IN REACH. WAITING PLACEMENT.
--- NOTE | 2019-12-04 06:00 | NUR ---
STRATEGIC SOURCING SPECIALIST SUMMARY NO ACUTE CHANGES. PT SLEPT MOST OF THE NIGHT. DENIED PAIN, SOB, N/V. PT DECLINES NEEDS WHEN ASKED. WITHDRAWN BUT DID TAKE HS MEDS AND ALLOWED ASSESSMENT EXCEPT FOR SKIN CHECK. VSS, WILL CONTINUE TO MONITOR.
--- NOTE | 2019-12-04 16:53 | NUR ---
Shift Summary Patient had an uneventful day. No acute changes. Pleasant and cooperative with care. Took all morning meds. Refused shower and skin assessment. No behavioral issues noted. Will continue to monitor.
--- NOTE | 2019-12-05 05:40 | NUR ---
SHIFT SUMMARY PT HAS RESTED THIS SHIFT. ASSESSMENT REMAINS UNCHANGED, AND PT INTERACTS MINIAMLLY WITH STAFF. PT HAS BEEN COOPERATIVE TO CARE PROVIED THIS SHIFT. DENIES NEEDS THIS SHIFT. INDEPENDENT IN THE ROOM. VITALS STABLE. BED IN LOWEST POSITION, CALL LIGHT WITHIN REACH.
--- NOTE | 2019-12-05 15:23 | NUR ---
Shift Summary Patient was agitated this morning. As this RN asked for permission to complete assessment, patient was huffing and puffing while completing assessment. Did allow RN to complete assessment. As meds were handed to patient, he huffed and sighed and rolled his eyes, grabbed the meds and poured them onto the bed. Also grabbed the water cup roughly almost spilling the water, took pills one at a time, and hastily handed water cup back to this RN. Otherwise, was cooperative with care. Declined shower. Minimally spoke to staff. No acute changes. Will continue to monitor.
--- NOTE | 2019-12-05 20:50 | NUR ---
PT REFUSED PHONE CALL FROM FAMILY MEMBER.
--- NOTE | 2019-12-06 05:53 | NUR ---
SHIFT SUMMARY PT HAS RESTED WELL THIS SHIFT WITH NO CHANGES. DOES NOT USE CALL LIGHT OR CALL FOR ANY TYPE OF ASSISTANCE. WHEN ROUNDED ON PT DENIES NEEDS. PT CONTINUES TO BE WITHDRAWN BUT HAS BEEN COOPERATIVE WITH CARE. NO ACUTE CHANGES. BED IN LOWEST POSITION, CALL LIGHT WITHIN REACH.
--- NOTE | 2019-12-06 17:41 | NUR ---
ALERT. WITHDRAWN. COOPERATIVE.SLEEPS MOST OF DAY. DENIES ANY NEEDS. UNLABORED RESPIRATIONS. INDEPENDENT IN ROOM. AWAITING D'C TO SISTERS.WCTM.
--- NOTE | 2019-12-07 05:37 | NUR ---
PRINCIPAL CYBER ENGINEER SUMMARY A&O. WITHDRAWN AND FLAT AFFECT. APPEARED TO SLEEP MOST OF THE NIGHT. NO ACUTE DISTRESS. DENIES PAIN OR DISCOMFORT. BED IN LOWEST POSITION WITH CALL LIGHT IN REACH. WILL CONTINUE TO MONITOR AND REPORT TO ONCOMING RN.
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
--- NOTE | 2019-12-08 05:29 | NUR ---
SHIFT SUMMARY PT HAS HAD NO ACUTE CHANGES THIS SHIFT, NO C/O ANY KIND, A&O, COOPERATIVE W/CARE, SLEPT T/O THE NIGHT & SLEEPING AT THIS TIME, CALL LIGHT IN REACH, WILL CONT TO MONITOR UNTIL REPORT GIVEN TO DAY RN.
--- NOTE | 2019-12-08 17:01 | NUR ---
SHIFT SUMMARY PATIENT DENIES PAIN, NAUSEA, AND SHORTNESS OF BREATH. PATIENT UP INDEPENDENT IN ROOM. PATIENT COOPERATIVE WITH CARE BUT WITHDRAWN. PATIENT WATCHING TV IN BE MOST OF SHIFT. CALL LIGHT IN REACH.
--- NOTE | 2019-12-09 04:57 | NUR ---
SHIFT SUMMARY PT HAS HAD NO ACUTE CHANGES THIS SHIFT, NO C/O ANY KIND, A&O, COOPERATIVE W/CARE, INDEP TO BR, SLEPT T/O THE NIGHT & SLEEPING AT THIS TIME, CALL LIGHT IN REACH, WILL CONT TO MONITOR UNTIL REPORT GIVEN TO DAY RN.
--- NOTE | 2019-12-09 17:25 | NUR ---
SUMMARY PT IS A/O X4 HOWEVER FLAT/WITHDRAWN, MINIMAL VERBAL INTERACTION. STATE NOO DISCOMFORT T/O DAY. STATE NO NEEDS. WATCHING TV MOST OF DAY. HX SCHIZOPHRENIA, NO S/S AUDIO OR VISUAL HALLUCINATIONS. VSS, HE STATE BM THIS AM. PLAN FOR HIM TO D/C WHEN HIS SISTER IS ABLE TO MOVE FROM [place].
--- NOTE | 2019-12-10 05:42 | NUR ---
SHIFT SUMMARY PT HAS HAD NO ACUTE CHANGES THIS SHIFT, NO C/O ANY KINDS, INDEP IN ROOM, ABLE TO MAKE NEEDS KNOWN, SLEPT T/O THE NIGHT & AT THIS TIME, CALL LIGHT IN REACH, WILL CONT TO MONITOR UNTIL REPORT GIVEN TO DAY RN.
--- NOTE | 2019-12-10 19:57 | NUR ---
SUMMARY PT CONTINUES FLAT, WITHDRAWN. MINIMAL VERBAL INTERACTION. DIFFICULT TO ASSESS, ANSWERS ONLY VERY BASIC QUESTIONS SHORTLY, IF QUESTIONED FURTHER HE IGNORES. STATE NO DISCOMFORT, NO NEEDS T/O DAY. HAS SPENT MOST OF DAY IN BED HOWEVER GETS UP IND TO BR, STRETCHES INTERMITTANTLY. WATCHES TV & @ X'S ON TELEPHONE. HX SCHIZOPHRENIA, MEDICALLY STABLE AWAITING PROPER PLACEMENT.
--- NOTE | 2019-12-11 04:30 | NUR ---
night shift manager summary pt a/o x4. independent in room. denies pain, nausea other discomfort. slept well tonight. vss. no acute changes.
--- NOTE | 2019-12-11 20:17 | NUR ---
SHIFT SUMMARY: NO ACUTE EVENTS THIS SHIFT. ALERT AND COOPERATIVE, ANSWERS QUESTIONS AND FOLLOWS COMMANDS. USING BR, IS INDEPENDENT IN ROOM. APPEARS BORED, UNMOTIVATED. DENIES PAIN. AWAITING SAFE PLACE FOR D/C.
--- NOTE | 2019-12-12 05:14 | NUR ---
12/13/19 0500 PT SLEPT ON AND OFF LAST NIGHT. DENIES ANY DISCOMFORT ONLY HUNGRY AND GIVEN REQUESTED FOOD AND DRINK. VITALS STABLE. UNEVENTFUL NIGHT.
--- NOTE | 2019-12-12 18:54 | NUR ---
SHIFT SUMMARY: NO EVENTS THIS SHIFT. DENIED PAIN. EATING 100% OF MEALS. IS INDEPENDENT IN ROOM. ANSWERS QUESTIONS WITH 1-2 WORDS, WOULD RATHER BE LEFT ALONE. DISCHARGE PENDING.
--- NOTE | 2019-12-13 07:52 | NUR ---
12/13/19 0550 PT SLEPT ON AND OFF. FLAT AFFECT AND BECOMES IRRITABLE WHEN ASKED QUESTIONS. DENIES ANY DISCOMFORT OR S/S THIS SHIFT. UNEVENTFUL NIGHT.
--- NOTE | 2019-12-13 16:21 | NUR ---
PATIENT SUMMARY: NO SIGNIFICANT CHANGES DURING THE SHIFT. DENIES PAIN. HE IS EATING 100% OF MEALS. IS INDEPENDANT IN THE ROOM. HE HAS BEEN USING THE CALL LIGHT APPROPRIATELY. PATIENT WOULD RATHER HAVE FEW OF STAFF IN HIS ROOM POSSIBLE. DISCHARGE IS STILL PENDING. WILL CONTINUE TO MONITOR UNTIL NIGHTSHIFT NURSE COMES TO RECIEVE REPORT.
--- NOTE | 2019-12-14 04:49 | NUR ---
12/14/19 6255 PT DOES NOT MAKE EYE CONTACT WHEN STAFF TALKING WITH HIM. GETS IRRITABLE IF QUESTIONS ARE ASKED. WATCHING TV MOST OF SHIFT. STATES HE HAD BM AND VOIDING "OKAY." UNEVENTFUL NIGHT.
--- NOTE | 2019-12-14 16:00 | NUR ---
SHIFT SUMMARY PT IS A/O X 4 WITH A FLAT AFFECT. HE HAS NO C/O PAIN. HE IS IND IN HIS ROOM AND COMPLIANT WITH HIS CARE. HE AMBULATES INDEPENDENTLY TO THE TOILET. HE HAS A GOOD APPETITE. PT STATED TODAY THAT HE WOULD LIKE TO RETURN HOME TO HIS [place] WHERE HE WAS LIVING BEFORE THIS HOSPITAL STAY. HE REPORTS THAT HE WAS CARING FOR HIMSELF AND FOR ANOTHER WOMAN WHO LIVED IN HIS [place] WITH HIM BUT IS UNSURE IF SHE IS THERE NOW. DR BURTON WAS NOTIFIED OF HIS REQUEST TO RETURN HOME AND ORDERED A FOLLOW UP WITH [facility] [facility]. THE PSYCH CONSULT WAS COMPLETED SCHEDULED AND THE PROVIDER REPORTS THAT HE IS WRITING HIS NOTE TO REFLECT HIS VISIT. THE NURSE PRINTER'S DEVIL HAS BEEN UPDATED. THE PT HAS BEEN RESTING IN BED WATCHING TV THROUGHOUT THE DAY. HE IS ABLE TO MAKE HIS NEEDS KNOWN AND CALLS FOR HELP WHEN NEEDED. HE HAS HIS CALL LIGHT IN REACH.
--- NOTE | 2019-12-15 04:58 | NUR ---
SHIFT SUMMARY PT SLOW TO RESPOND TO QUESTIONS. SOMETIMES PT WOULD NOT ANSWER QUESTIONS AT ALL. WOULD ONLY SIT THERE LIKE HE COULDN'T HEAR ME. WHEN ASKED ENOUGH TIMES PT WOULD EVENTUALLY ANSWER. PT AWAKE LATE IN THE SHIFT BUT APPEARED TO SLEEP WELL AFTER FINALLY FALLING ASLEEP. PT HAD UNEVENTFUL NIGHT. VITAL SIGNS STABLE. DENIED ANY PAIN OR NEEDS. NO ACUTE CHANGES THIS SHIFT. WILL CONTINUE TO MONITOR AND REPORT TO DAY RN.
--- NOTE | 2019-12-15 12:58 | NUR ---
PT IS A/O TODAY AND HAS NO C/O. HE ANSWERS QUESTIONS APPROPRIATELY WITH A FLAT AFFECT. HE IS IND IN HIS ROOM AND COMPLETES HIS OWN ADLS. HE HAS A GOOD APPETITE AND AMBULATES TO THE TOILET WHEN NEEDED. CARE MANAGEMENT HAS BEEN WORKING ON A SAFE DC FOR THE PT BACK TO HIS HOME THAT IS HIS PREFERENCE. YESTERDAY HE MET WITH [facility] AT THE REQUEST OF DR BURTON. THIS MORNING DR BURTON WROTE ORDERS FOR THE PT TO BE DCD HOME WITH HOME HEALTH. THE PT IS IN AGREEMENT WITH THIS PLAN AND HAS STATED THAT HE WOULD RATHER RETURN TO HIS HOME. THE PT'S SISTER CALLED TO ASK ABOUT THE PLAN FOR HIS DC. WHEN TOLD THAT HE IS PLANNING ON RETURNING HOME TODAY THE SISTER STATED THAT SHE "WANTS THE DOCUMENTATION THAT SAYS HE CAN GO HOME" THIS NURSE EXPLAINED THAT SHE COULD CONTACT MEDICAL RECORDS FOR ANY INFORMATION ABOUT HIS STAY HERE. THE SISTER WENT ON TO SAY THAT "IF ANYTHING HAPPENS TO MY BROTHER AFTER HE IS DISCHARGED THEN I WILL BE MAKING A CLAIM WITH THE COURTS". THE SISTER STATED THAT SHE WANTS TO KNOW WHY PT IS PLANNED TO DC TODAY AND AFTER MULTIPLE ATTEMPTS TO EXPLAIN THAT HE NO LONGER HAS A MEDICAL NEED TO BE IN THE HOSPITAL PER THE HOSPITALIST AND THE [facility]RIST SHE WAS DIRECTED TO SPEAK WITH THE CHARGE NURSE. THE BOARD LAYER WAS ALSO MADE AWARE.
--- NOTE | 2019-12-15 14:52 | NUR ---
PT SCHEDULED TO DC HOME TODAY. AFTER THE TEACHER OF THE HANDICAPPED SPOKE WITH THE SISTER THE PLAN IS FOR THE SISTER TO PROCESSING ENGINEER THE PT AT 4 PM. ALL DC INSTRUCTIONS WERE REVIEWED WITH THE PT WHO VERBALIZES AN UNDERSTANDING. THE PT HAS NO IV. NO HOME MEDS WERE ORDERED. THE PT STATES THAT HE GOES TO THE [facility] IN [place] AND CAN CALL TO SCHEDULE THE FOLLOW UP APPT AND THE NUMBER IS IN HIS DC PACKET. THE PT IS AGREEABLE TO THIS PLAN. HE IS WAITING HIS RIDE HOME.
== END 2019-12-15 16:31 | disposition home or self-care (01) | DRG 871 ==
LOC: ER 15:28 → PCU 23:17 → ER 10-30 00:24 → MEDS 10-30 00:24 → PCU 10-30 00:27 → MEDS 11-01 22:53
PROVIDERS: Emergency Medicine; Family Medicine; Internal Medicine; Nurse Practitioner Acute Care; Surgery; ADMIT Internal Medicine
PROC: 0W9G30Z Drainage of Peritoneal Cavity with Drainage Device, Percutaneous Approach (ICD-10-PCS; principal; 2019-11-08)
DX: A41.51 Sepsis due to Escherichia coli [E. coli] (principal); G92 Toxic encephalopathy; N17.9 Acute kidney failure, unspecified; K57.20 Diverticulitis of large intestine with perforation and abscess without bleeding; R65.20 Severe sepsis without septic shock; F20.9 Schizophrenia, unspecified; I10 Essential (primary) hypertension; D69.6 Thrombocytopenia, unspecified; F41.9 Anxiety disorder, unspecified; Z78.1 Physical restraint status
CPT/HCPCS: 36415; 49405; 70450; 71045; 74177; 80048; 80053; 80069; 81001; 82550; 82947; 83605; 83735; 84100; 84145; 84478; 85025; 85027; 85610; 85730; 86140; 87040; 87070; 87075; 87076; 87077; 87185; 87186; 87205; 96361; 96374; 99285-25; A9270; A9270-GY; G0480; J1650; J2060; J2405; J2543; J2704; J3411; J3480; J7030; J7050; J7120; Q9967

== ENCOUNTER 2023-11-19 10:28 | Day surgery (SDC) | payer OTHER ==
[~2023-11-19] VITALS: Ht 185.4 cm; Wt 100.6 kg
[~2023-11-19 10:28] MED LIST: CeFAZolin Sodium 2,000 MG VIAL ONE; Lactated Ringer's 1,000 ML IV ONE; NS 0 ML IV ONE
[2023-11-19] MEDS ORDERED: LISINOPRIL-HCT1 EACH PO (10:37)
[2023-11-19] MEDS ORDERED: ATOR10 PO (10:37)
[2023-11-19] MEDS ORDERED: SILDENAFIL CITR25 MG PO (10:38)
[2023-11-19] MEDS ORDERED: Lactated Ringer's 1,000 ML IV ONE ×3 (10:56→13:25)
[2023-11-19] MEDS ORDERED: NS 50 ML IV ONE (10:57)
[2023-11-19] MEDS ORDERED: CeFAZolin Sodium 2,000 MG VIAL ONE (10:57)
[2023-11-19] MEDS ORDERED: Ropivacaine 0.5% HCL/PF 5 MG/ML 30ML Vial ONE (11:02)
--- NOTE | 2023-11-19 11:08 | NUR ---
11/19/23 1108 Rand Harkins PT DON'T DISCUSS PROCEDURE WITH FRIEND ELEONORA. PT DOES WANT HARDWARE THAT IS REMOVED TODAY.
[2023-11-19] MEDS ORDERED: propofoL 20 ML IV ONE ×2 (11:12→11:54)
[2023-11-19] MEDS ORDERED: FentaNYL Citrate 50 MCG/ML 2 ML Injection ONE (11:13)
[2023-11-19] MEDS ORDERED: Rocuronium Bromide 10 MG/ML 5ML Injection IV ONE (11:18)
[2023-11-19] MEDS ORDERED: Dexamethasone Sod Phos 10 MG/ML 1ML VIAL ONE (11:25)
[2023-11-19] MEDS ORDERED: Ondansetron HCl 2 MG / ML 2ML Vial ONE (11:25)
[2023-11-19] MEDS ORDERED: EPINEPhrine HCl 1 MG/ML 1ML Amp XX ONE (11:35)
[2023-11-19] MEDS ORDERED: Phenylephrine HCl 100 MCG/ML-NS 10MLSYR (1MG/10ML) ONE (11:37)
[2023-11-19] MEDS ORDERED: Sugammadex Sodium 200 MG/2ML SDV (100 MG/ML) ONE (11:49)
[2023-11-19 13:25] VITALS: BP 101/57
--- NOTE | 2023-11-19 13:36 | NUR ---
11/19/23 1336 LAZARA MAGUIRE PT TO STEP DOWN TO CONTINUE MONITORING. PT IN [place], FLUIDS AT STEADY DRIP, NOT WIDE OPEN D/T DECREASED KIDNEY FUNCTION. BP IN PACU 77/45, MD MARIANO AWARE. WILL CONT TO MONITOR. PT INTO STEP DOWN - FIRST BP IS 93/49 AND TRENDING UPWARD. LAST BP PRIOR TO DC IS 101/57, MAP 71, HR 51, O2 99% PT IS STABLE ON ROOM AIR. PT REPORTS PAIN /10 HOWEVER DENIES NEED FOR PAIN MEDICINE AND "WANTS TO PROTECT HIS KIDNEYS" HE ALSO CONTINUES SAYING IT IS SIMILAR TO HIS PAIN PRIOR TO PROCEDURE, AND TOLERABLE. HE IS TOLERATING PO DRINKS, NO SNACKS OR FOOD PER PT. DRESSING IS C/D/I. ENGAGED IN DC INSTRUCTIONS - ALL QUESTIONS ASKED AND ANSWERED. HARDWARE RETURNED TO PATIENT PRIOR TO DC. REGARDING RIDE HOME - ATTEMPTED TO CALL PT'S RIDE - FRIEND ELEONORA - TWICE WITH NO ANSWER - WENT TO VOICEMAIL. LEFT VOICEMAIL FOR FRIEND TO RETURN TO S CENTER. PT CONSULTED AND WOULD LIKE TO PURSUE [facility] RIDE HOME. [facility] IS ATTEMPTING TO ARRANGE THIS TRANSPORT HOME. TO
== END 2023-11-19 13:22 | disposition home or self-care (01) ==
LOC: ORSCSDS 10:28
PROVIDERS: Orthopaedic Surgery
PROC: 0YPB0YZ Removal of Other Device from Left Lower Extremity, Open Approach (ICD-10-PCS; principal; 2023-11-19 11:30)
DX: T84.9XXA Unspecified complication of internal orthopedic prosthetic device, implant and graft, initial encounter (principal); I12.9 Hypertensive chronic kidney disease with stage 1 through stage 4 chronic kidney disease, or unspecified chronic kidney disease; N18.9 Chronic kidney disease, unspecified; Z87.891 Personal history of nicotine dependence
CPT/HCPCS: J0171; J0690; J1100; J2371; J2405; J2704; J2795; J3010; J7120